=== PATIENT | male | born 1930 | race Caucasian/White ===

== ENCOUNTER 2016-06-03 17:27 | Inpatient (IN) | payer MEDICARE, OTHER ==
[2016-06-03] MEDS ORDERED: Sodium Chloride 0.9% 1,000 ML IV STA (17:40)
[2016-06-03] MEDS ORDERED: Sodium Chloride 0.9% 10 ML Syringe FLUSH PRN (17:40)
[2016-06-03] MEDS ORDERED: Albuterol 0.083% 2.5 MG/3 ML Neb Soln NEB ONE (17:41)
[2016-06-03] MEDS ORDERED: 50% Dextrose in Water 50 ML Syringe IVPUSH ONE (17:41)
[2016-06-03] MEDS ORDERED: Insulin Regular, Human 100 Units/ML 3 ML Vial SUBCUT ONE (17:42)
[2016-06-03] MEDS ORDERED: Sodium Polystyrene Sulfonate 15 GM/60 ML Susp 60 ML Bot PO ONE (17:43)
[2016-06-03] MEDS ORDERED: Calcium Gluconate 10% 1 GM/10 ML SDV IVPUSH ONE (17:43)
--- NOTE | 2016-06-03 19:06 | PCM.HP ---
H&P History of Present Illness - General Date of Service: 06/03/16 Admit Problem/Dx: Acute Kidney Injury and Hyperkalemia Source of Information: Patient, Old records, Provider, RN notes reviewed History Limitations: Reports: Other (Hard of Hearing) - History of Present Illness Initial Comments - Free Text/Narative: This is an 85 yo elderly white female with past medical hx/o Impaired Vision and Hearing, HF with Unknown, HTN, GERD, Hx/o Hemorrhoids, BPH, Chronic Back Pain, Hx/o Seizure and Rosacea who comes with c/o progressive generalized weakness. Patient is mostly bed bound. He uses a walker to get around but lately he has been requiring more help then usual. Patient lives with his . Per EMR, he has been fallen july times as evidenced by multiple bruises and skin breaks he got. He went in to see his PCP today to be evaluated for wheel chair but he was found to have abnormal labs. His Cr was 4.2 with a K 7. From there, he was brought over to ED for further medical treatment. In ED, he received one time dose of albuterol nebs, insulin with D50, 15 gram kayexalate and calcium gluconate before he was sent to the floor for further management. He was referred to me for Acute Kidney Injury, Hyperkalemia and Generalized Weakness. He is DNR/DNI. - Related Data Allergies/Adverse Reactions: Allergies Allergy/AdvReac Type Severity Reaction Status Date / Time acetaminophen Allergy Cannot Verified 06/14/15 18:51 Remember azithromycin [From Zithromax] Allergy Rash Verified 06/14/15 18:51 chocolate flavor Allergy Cannot Verified 06/14/15 18:51 Remember Dairy Products Allergy Cannot Verified 06/14/15 18:51 Remember hydrocodone Allergy Cannot Verified 06/14/15 18:51 Remember phenytoin sodium Allergy Rash Verified 06/14/15 18:51 [From Dilantin] phenytoin sodium extended Allergy Rash Verified 06/14/15 18:51 [From Dilantin] pravastatin Allergy Cannot Verified 06/14/15 18:51 Remember prednisone Allergy Cannot Verified 06/14/15 18:51 Remember tramadol Allergy Cannot Verified 06/14/15 18:51 Remember wheat Allergy Cannot Verified 07/12/14 15:17 Remember soy Allergy Cannot Uncoded 07/12/14 15:17 Remember Home Medications: Home Meds Metoprolol Succinate [Toprol XL] 50 mg PO DAILY 07/12/14 [History] levETIRAcetam [Levetiracetam ER] 500 mg PO BID 07/12/14 [History] Sprinolactone 25 mg PO DAILY 08/30/15 [History] Furosemide 40 mg PO BID 06/03/16 [History] Past Medical History HEENT History: Reports: Impaired vision, Other (see below) Other HEENT History: [place]HE[place] Cardiovascular History: Reports: Heart Failure, Hypertension Gastrointestinal History: Reports: GERD, Hemorrhoids Genitourinary History: Reports: Prostate disorder Musculoskeletal History: Reports: Back pain, chronic Neurological History: Reports: Seizure Psychiatric History: Reports: None Oncologic (Cancer) History: Reports: Prostate Dermatologic History: Reports: Other (see below) Other Dermatologic History: rosacea - Past Surgical History HEENT Surgical History: Reports: Cataract surgery Musculoskeletal Surgical History: Reports: Knee replacement Other Musculoskeletal Surgeries/Procedures:: RIGHT KNEE Social & Family History - Family History Family Medical History: Noncontributory - Tobacco Use Smoking Status *Q: Former Smoker Used Tobacco, but Quit: Yes Month Tobacco Last Used: 1989 - Caffeine Use Caffeine Use: Reports: Coffee - Alcohol Use Days Per Week of Alcohol Use: 0 - Recreational Drug Use Recreational Drug Use: No Recreational Drug Use Frequency: Rarely H&P Review of Systems - Review of Systems: Review Of Systems: See Below General: Reports: malaise, weakness. Denies: fever, chills HEENT: Reports: no symptoms Pulmonary: Denies: shortness of breath Cardiovascular: Denies: chest pain, palpitations, dyspnea on exertion Gastrointestinal: Denies: Abdominal pain, Nausea, Vomiting Genitourinary: Reports: no symptoms Musculoskeletal: Reports: no symptoms Skin: Reports: bruising. Denies: cyanosis, rash Psychiatric: Denies: depression, anxiety, hallucinations Neurological: Reports: weakness. Denies: confusion Hematologic/Lymphatic: Reports: easy bruising Immunologic: Reports: no symptoms Exam - Exam Exam: See Below - Vital Signs Vital Signs: Last Vital Signs Temp 36.2 C 06/03/16 17:37 Pulse 64 06/03/16 17:37 Resp 13 06/03/16 17:37 BP 137/58 L 06/03/16 17:37 Pulse Ox 100 06/03/16 17:37 Weight: 81.647 kg - Exam General: alert. No: mild distress HEENT: Conjunctiva clear, Nares patent, Normal nasal septum, Posterior pharynx clear, PERRLA. No: Hearing intact Neck: supple, trachea midline, 2+ carotid pulse wo bruit Lungs: Normal respiratory effort, Decreased breath sounds Cardiovascular: regular rate, regular rhythm Abdomen: normal bowel sounds, soft. No: organomegaly (Male) Exam: Deferred Rectal (Males) Exam: Deferred Back Exam: normal inspection, decreased range of motion Extremities: normal inspection, edema (trace). No: clubbing, cyanosis, calf tenderness Skin: warm, dry, intact, ecchymosis, wound Skin Alteration Location (drawings not to scale): 1 - ecchymosis 2 - superficial wound 3 - a dark scab on thompson Neuro Extensive - Mental Status: No: oriented x3, normal cognition, memory intact Neuro Extensive - Motor, Sensory, Reflexes: CN II-XII intact (very limited ), abnormal gait, other (able to lift both legs) Psychiatric: alert, normal affect, normal mood Physical Exam Comments:: Physical exam is limited by his hard of hearing and by him unable to follow instructions - Patient Data Result Diagrams: 06/03/16 23:25 EKG INTERPRETATION EKG Date: 06/03/16 Time: 18:30 Rhythm: other (Sinus Rhythm) EKG Interpretation Comments: 1st Degree AVB and Multiple PVCs *Q Meaningful Use (ADM) - VTE *Q VTE Criteria *Q: - Stroke *Q Stroke Criteria *Q: - AMI *Q AMI Criteria *Q: Problem List Initiated/Reviewed/Updated: Yes Orders Last 24hrs: Active Orders 24 hr Category Date Time Status EKG 12 Lead [EKG Documentation Completion] [RC] STAT Care 06/03/16 17:43 Active Peripheral IV Care [RC] . DIRECTED Care 06/03/16 17:41 Active RT Aerosol Therapy [RC] ASDIRECTED Care 06/03/16 17:41 Active Sodium Chloride 0.9% [Saline Flush] Med 06/03/16 17:40 Active 10 ml FLUSH ASDIRECTED PRN Peripheral IV Insertion Adult [OM.PC] Stat Oth 06/03/16 17:40 Ordered Medication Orders Sodium Chloride (Saline Flush) 10 ml FLUSH ASDIRECTED PRN PRN Reason: Keep Vein Open Last Admin: 06/03/16 18:24 Dose: 10 ml Assessment/Plan Comment:: Assessment/Plan: Acute: Acute on Chronic Kidney Disease - Risk Factors: Prostate Disorder and on Diuretics - Cr 4.2, baseline is 2 (obtained form secondary sources) - IV Hydration at 125 - Renal U/S - Will d/c lasix and spironolactone - Will try to void nephrotoxic agents Hyperkalemia - K 7 at the clinic - 2/ JOANNE worsened by K-sparing Diuretic - D/c Spironolactone - Received albuterol, insulin with D50, calcium gluconate and 15 gram kayexalate x1 in ED - Repeat BMP this evening, may continue same regimen above if level dose not improve significantly Generalized Weakness - Has been progressive - Check for thyroid and Vit D level - PT/OT consult - Consider SNF/Rehab placement Anemia: Acute Vs Chronic (likely chronic from CKD) - Hgb is 9.9, no baseline comparison - No active bleed - Will monitor - Consider Iron infusion Chronic: Impaired Vision and Hearing HTN GERD HF with unknown EF Prostate Disorder Back Pain Peripheral Edema Seizure Rosacea Plan; Admit to Med-Surg with Tele Routine AM Labs Resume Some Home Meds PT/OT consult LICENSE INSPECTOR for cognitive eval SW/CM for d/c planning Seizure/Fall Precautions DVT ppx: SCDs Code status: DNR/DNI Additional orders as above
--- NOTE | 2016-06-03 20:47 | EDM.PDOC ---
ED HPI NEURO - General Chief Complaint: General Stated Complaint: [facility] Time Seen by Provider: 06/03/16 17:33 Source of Information: Reports: Patient, Family, Provider History Limitations: Reports: No limitations - History of Present Illness INITIAL COMMENTS - FREE TEXT/NARRATIVE: The patient was sent to the ER for abnormal labs. He has been having trouble getting around at home. He uses a walker and he has been needing more help getting around at home. He has fallen a many times. He went to [facility] today to be evaluated for a wheel chair. She did some labs and she called the patient back. His creatinine was high at 4.2 and his K was high at 7. EMS brought him in. He had no complaints when he arrive. He had no chest pain, fever, chills, cough, congestion, shortness of breath, abdominal pain, nausea or vomiting. Timing/Duration: Reports: Week(s): Location (Neuro Complaint): Reports: lower extremity, left, lower extremity, right Quality (Neuro Complaint): Reports: weakness Severity: moderate Improves with: Reports: None Worsens with: Reports: None Associated Symptoms: Reports: no other symptoms - Related Data Allergies/ADRs: Allergies Allergy/AdvReac Type Severity Reaction Status Date / Time acetaminophen Allergy Cannot Verified 06/14/15 18:51 Remember azithromycin [From Zithromax] Allergy Rash Verified 06/14/15 18:51 chocolate flavor Allergy Cannot Verified 06/14/15 18:51 Remember Dairy Products Allergy Cannot Verified 06/14/15 18:51 Remember hydrocodone Allergy Cannot Verified 06/14/15 18:51 Remember phenytoin sodium Allergy Rash Verified 06/14/15 18:51 [From Dilantin] phenytoin sodium extended Allergy Rash Verified 06/14/15 18:51 [From Dilantin] pravastatin Allergy Cannot Verified 06/14/15 18:51 Remember prednisone Allergy Cannot Verified 06/14/15 18:51 Remember tramadol Allergy Cannot Verified 06/14/15 18:51 Remember wheat Allergy Cannot Verified 07/12/14 15:17 Remember soy Allergy Cannot Uncoded 07/12/14 15:17 Remember Home Meds: Home Meds Metoprolol Succinate [Toprol XL] 50 mg PO DAILY 07/12/14 [History] levETIRAcetam [Levetiracetam ER] 500 mg PO BID 07/12/14 [History] Sprinolactone 25 mg PO DAILY 08/30/15 [History] Furosemide 40 mg PO BID 06/03/16 [History] Past Medical History HEENT History: Reports: Impaired vision, Other (see below) Other HEENT History: [place] Cardiovascular History: Reports: Heart Failure, Hypertension Gastrointestinal History: Reports: GERD, Hemorrhoids Genitourinary History: Reports: Prostate disorder Musculoskeletal History: Reports: Back pain, chronic Neurological History: Reports: Seizure Psychiatric History: Reports: None Oncologic (Cancer) History: Reports: Prostate Dermatologic History: Reports: Other (see below) Other Dermatologic History: rosacea - Past Surgical History HEENT Surgical History: Reports: Cataract surgery Musculoskeletal Surgical History: Reports: Knee replacement Other Musculoskeletal Surgeries/Procedures:: RIGHT KNEE Social & Family History - Family History Family Medical History: Noncontributory - Tobacco Use Smoking Status *Q: Former Smoker Used Tobacco, but Quit: Yes Month Tobacco Last Used: 1989 - Caffeine Use Caffeine Use: Reports: Coffee - Alcohol Use Days Per Week of Alcohol Use: 0 - Recreational Drug Use Recreational Drug Use: No Recreational Drug Use Frequency: Rarely ED ROS GENERAL - Review of Systems Review Of Systems: See Below Constitutional: Reports: weakness HEENT: Reports: No symptoms Respiratory: Reports: no symptoms Cardiovascular: Reports: No symptoms Endocrine: Reports: no symptoms GI/Abdominal: Reports: No symptoms : Reports: no symptoms Musculoskeletal: Reports: no symptoms Skin: Reports: no symptoms Neurological: Reports: weakness (Generalized) ED EXAM, NEURO - Physical Exam Exam: See Below Exam Limited By: No limitations General Appearance: alert, no apparent distress Ears: normal external exam Nose: normal inspection Head Exam: atraumatic, normocephalic Neck: normal inspection Respiratory/Chest: no respiratory distress, lungs clear, normal breath sounds Cardiovascular: regular rate, rhythm, no murmur GI/Abdominal: soft, non tender, no organomegaly Neurological: alert, no motor/sensory deficits, oriented x 3 Back Exam: normal inspection Extremities: other (lower leg edema) EKG INTERPRETATION EKG Date: 06/03/16 Time: 18:30 Rhythm: NSR Rate (beats/min): 61 [place]: normal P-wave: present QRS: normal ST-T: normal QT: normal [place]/PQ Interval: 1st degree HB EKG Interpretation Comments: Multiple PVCs. Course - Vital Signs Last Recorded V/S: Last Vital Signs Temp 97.1 F 06/03/16 17:37 Pulse 64 06/03/16 17:37 Resp 13 06/03/16 17:37 BP 137/58 L 06/03/16 17:37 Pulse Ox 100 06/03/16 17:37 - Orders/Labs/Meds Orders: Active Orders 24 hr Category Date Time Status EKG 12 Lead [EKG Documentation Completion] [RC] STAT Care 06/03/16 17:43 Active Peripheral IV Care [RC] . DIRECTED Care 06/03/16 17:41 Active RT Aerosol Therapy [RC] ASDIRECTED Care 06/03/16 17:41 Active Sodium Chloride 0.9% [Saline Flush] Med 06/03/16 17:40 Active 10 ml FLUSH ASDIRECTED PRN Peripheral IV Insertion Adult [OM.PC] Stat Oth 06/03/16 17:40 Ordered Medication Orders Sodium Chloride (Saline Flush) 10 ml FLUSH ASDIRECTED PRN PRN Reason: Keep Vein Open Last Admin: 06/03/16 18:24 Dose: 10 ml Meds: Medications Generic Name Dose Route Start Last Admin Trade Name Freq PRN Reason Stop Dose Admin Sodium Chloride 10 ml 06/03/16 17:40 06/03/16 18:24 Saline Flush FLUSH 10 ml ASDIRECTED PRN Administration Keep Vein Open Discontinued Medications Generic Name Dose Route Start Last Admin Trade Name Freq PRN Reason Stop Dose Admin Albuterol 2.5 mg 06/03/16 17:41 06/03/16 18:32 Proventil Neb Soln NEB 06/03/16 17:42 2.5 mg ONETIME ONE Administration Calcium Gluconate 1 gm 06/03/16 17:43 06/03/16 18:23 Calcium Gluconate IVPUSH 06/03/16 17:44 1 gm ONETIME ONE Administration Dextrose/Water 50 ml 06/03/16 17:41 06/03/16 18:07 Dextrose 50% In Water IVPUSH 06/03/16 17:42 50 ml ONETIME ONE Administration Sodium Chloride 1,000 mls @ 1,000 mls/hr 06/03/16 17:40 06/03/16 18:10 Normal Saline IV 06/03/16 18:39 1,000 mls/hr .BOLUS STA Administration Insulin Human Regular 10 unit 06/03/16 17:42 06/03/16 18:11 Humulin R SUBCUT 06/03/16 17:43 10 units ONETIME ONE Administration Protocol Sodium Polystyrene Sulfonate 15 gm 06/03/16 17:43 06/03/16 18:41 Kayexalate PO 06/03/16 17:44 15 gm ONETIME ONE Administration - Re-Assessments/Exams Free Text/Narrative Re-Assessment/Exam: 06/03/16 20:50 I ordered an IV and some fluids. His EKG shows nothing acute. His is in acute renal failure and hyperkalemia. I ordered an albuterol treatment, insulin with D50, kayexylate 15 grams and calcium gluconate. I called Dr Toledo and he agreed to the admission. Departure - Departure Time of Disposition: 20:50 Disposition: Admitted As Inpatient 65 Condition: poor Clinical Impression: Generalized weakness, Hyperkalemia Acute renal failure Qualifiers: Acute renal failure type: unspecified Qualified Code(s): N17.9 - Acute kidney failure, unspecified Anemia Qualifiers: Anemia type: unspecified type Qualified Code(s): D64.9 - Anemia, unspecified - My Orders Last 24 Hours: My Active Orders 06/03/16 17:40 Sodium Chloride 0.9% [Saline Flush] 10 ml FLUSH ASDIRECTED PRN Peripheral IV Insertion Adult [OM.PC] Stat 06/03/16 17:41 Peripheral IV Care [RC] . DIRECTED RT Aerosol Therapy [RC] ASDIRECTED 06/03/16 17:43 EKG 12 Lead [EKG Documentation Completion] [RC] STAT - Assessment/Plan Last 24 Hours: My Active Orders 06/03/16 17:40 Sodium Chloride 0.9% [Saline Flush] 10 ml FLUSH ASDIRECTED PRN Peripheral IV Insertion Adult [OM.PC] Stat 06/03/16 17:41 Peripheral IV Care [RC] . DIRECTED RT Aerosol Therapy [RC] ASDIRECTED 06/03/16 17:43 EKG 12 Lead [EKG Documentation Completion] [RC] STAT
[2016-06-03] MEDS ORDERED: Metoprolol Tartrate 5 MG/5 ML SDV IVPUSH PRN (23:35)
[2016-06-03] MEDS ORDERED: hydrALAZINE 20 MG/ML SDV IVPUSH PRN (23:35)
[2016-06-03] MEDS ORDERED: Polyethylene Glycol 3350 Powder 17 GM Packet PO PRN (23:36)
[2016-06-03] MEDS ORDERED: Temazepam 15 MG Cap PO PRN (23:36)
[2016-06-03] MEDS ORDERED: Albuterol/Ipratropium 3.0-0.5 MG/3 ML Neb Soln NEB PRN (23:36)
[2016-06-03] MEDS ORDERED: Promethazine 12.5 MG in Sodium Chloride 0.9% 50 ML IV PRN (23:36)
[2016-06-03] MEDS ORDERED: Acetaminophen/HYDROcodone 325-5 MG Tab PO PRN (23:36)
[2016-06-03] MEDS ORDERED: HYDROmorphone 0.5 MG/0.5 ML Syringe IVPUSH PRN (23:36)
[2016-06-03] MEDS ORDERED: Acetaminophen 325 MG Tab PO PRN (23:36)
[2016-06-03] MEDS ORDERED: Ondansetron 4 MG/2 ML SDV IV PRN (23:36)
[2016-06-03] MEDS ORDERED: Bisacodyl 5 MG Tab PO PRN (23:36)
[2016-06-03] MEDS ORDERED: LORazepam 2 MG/ML MDV IV PRN (23:36)
[2016-06-04] MEDS ORDERED: Calcium Gluconate 10% 1 GM/10 ML SDV IVPUSH ONE (00:04)
[2016-06-04] MEDS: Sodium Polystyrene Sulfonate 15 GM/60 ML Susp 60 ML Bot PO SCH ×2 (01:37→10:08)
[2016-06-04] MEDS: Sodium Chloride 0.9% 1,000 ML IV SCH ×2 (01:37→14:49)
[2016-06-04] MEDS ORDERED: Spironolactone 25 MG Tab PO SCH (09:00)
--- NOTE | 2016-06-04 09:34 | PCM.PN ---
- General Info Date of Service: 06/04/16 Admission Dx/Problem (Free Text): Acute Kidney Injury and Hyperkalemia Subjective Update: Follow Up Functional Status: Reports: pain controlled, tolerating diet, urinating. Denies : new symptoms - Review of Systems General: Denies: fever, chills HEENT: Reports: no symptoms Pulmonary: Denies: shortness of breath Cardiovascular: Denies: chest pain Gastrointestinal: Denies: Abdominal pain, Nausea, Vomiting Genitourinary: Reports: no symptoms Musculoskeletal: Reports: no symptoms Skin: Denies: cyanosis, pruritis, rash Neurological: Reports: difficulty walking, weakness, gait disturbance. Denies: confusion, dizziness Psychiatric: Denies: depression, anxiety, hallucinations Systems Review Comment:: No overnight or acute issues. He has no new complaints. His K is now at 5.7 from 6.1, Cr is now at 3.9, and Hgb is 8.8. He wants to go home. - Patient Data Vitals - most recent: Last Vital Signs Temp 36.3 C 06/04/16 07:53 Pulse 63 06/04/16 07:53 Resp 16 06/04/16 07:53 BP 113/46 L 06/04/16 07:53 Pulse Ox 98 06/04/16 07:53 Weight - most recent: 68.538 kg I&O - last 24 hours: Intake & Output 06/03/16 06/04/16 06/04/16 22:59 06:59 14:59 Intake Total 1217 Output Total 200 Balance 1017 Lab Results last 24 hrs: Laboratory Results - last 24 hr 06/03/16 06/04/16 06/04/16 Range/Units 23:25 04:38 05:40 WBC 4.98 (4.23-9.07) K/mm3 RBC 2.86 L (4.63-6.08) M/mm3 Hgb 8.8 L (13.7-17.5) gm/L Hct 26.9 L (40.1-51.0) % MCV 94.1 H (79.0-92.2) fl MCH 30.8 (25.7-32.2) pg MCHC 32.7 (32.2-35.5) g/dl RDW Std Deviation 43.7 (35.1-43.9) fL Plt Count 218 (163-337) K/mm3 MPV 10.9 (9.4-12.3) fl Neut % (Auto) 62.7 (34.0-67.9) % Lymph % (Auto) 20.1 L (21.8-53.1) % [place] % (Auto) 11.6 (5.3-12.2) % Eos % (Auto) 5.0 (0.8-7.0) Baso % (Auto) 0.6 (0.1-1.2) % Neut # 3.12 (1.78-5.38) K/mm3 Lymph # 1.00 L (1.32-3.57) K/mm3 [place] # 0.58 (0.30-0.82) K/mm3 Eos # 0.25 (0.04-0.54) K/mm3 Baso # 0.03 (0.01-0.08) K/mm3 Sodium 136 (136-145) mEq/L Potassium 6.1 H (3.5-5.1) mEq/L Chloride 107 (98-107) mEq/L Carbon Dioxide 18 L (21-32) mEq/L Anion Gap 17.1 H (5-15) BUN 72 H (7-18) mg/dL Creatinine 3.9 H (0.7-1.3) mg/dL Est Cr Clr Drug Dosing 13.60 mL/min Estimated GFR (MDRD) 15 (>60) mL/min BUN/Creatinine Ratio 18.5 H (14-18) Glucose 89 (83-115) mg/dL Calcium 8.4 L (8.5-10.1) mg/dL Magnesium (1.8-2.4) mg/dl Free T4 (0.76-1.46) ng/dL TSH 3rd Generation (0.358-3.74) uIU/mL Urine Color Light yellow (Yellow) Urine Appearance Slt cloudy H (Clear) Urine pH 5.5 (5.0-8.0) Ur Specific [place] 1.015 (1.005-1.030) Urine Protein Trace H (Negative) Urine Glucose (UA) Negative (Negative) Urine Ketones Negative (Negative) Urine Occult Blood Trace-lysed H (Negative) Urine Nitrite Negative (Negative) Urine Bilirubin Negative (Negative) Urine Urobilinogen 0.2 (0.2-1.0) Ur Leukocyte Esterase Negative (Negative) Urine RBC 0-5 (0-5) /hpf Urine WBC 0-5 (0-5) /hpf Ur Squamous Epith Cells 0-5 (0-5) /hpf Urine Bacteria Rare (FEW) /hpf Hyaline Casts 0-5 (0-5) /lpf Urine Mucus Not seen (FEW) /hpf 06/04/16 Range/Units 05:40 WBC (4.23-9.07) K/mm3 RBC (4.63-6.08) M/mm3 Hgb (13.7-17.5) gm/L Hct (40.1-51.0) % MCV (79.0-92.2) fl MCH (25.7-32.2) pg MCHC (32.2-35.5) g/dl RDW Std Deviation (35.1-43.9) fL Plt Count (163-337) K/mm3 MPV (9.4-12.3) fl Neut % (Auto) (34.0-67.9) % Lymph % (Auto) (21.8-53.1) % [place] % (Auto) (5.3-12.2) % Eos % (Auto) (0.8-7.0) Baso % (Auto) (0.1-1.2) % Neut # (1.78-5.38) K/mm3 Lymph # (1.32-3.57) K/mm3 [place] # (0.30-0.82) K/mm3 Eos # (0.04-0.54) K/mm3 Baso # (0.01-0.08) K/mm3 Sodium 137 (136-145) mEq/L Potassium 5.7 H (3.5-5.1) mEq/L Chloride 106 (98-107) mEq/L Carbon Dioxide 20 L (21-32) mEq/L Anion Gap 16.7 H (5-15) BUN 66 H (7-18) mg/dL Creatinine 3.9 H (0.7-1.3) mg/dL Est Cr Clr Drug Dosing 13.18 mL/min Estimated GFR (MDRD) 15 (>60) mL/min BUN/Creatinine Ratio 16.9 (14-18) Glucose 112 (83-115) mg/dL Calcium 8.6 (8.5-10.1) mg/dL Magnesium 2.4 (1.8-2.4) mg/dl Free T4 0.96 (0.76-1.46) ng/dL TSH 3rd Generation 0.930 (0.358-3.74) uIU/mL Urine Color (Yellow) Urine Appearance (Clear) Urine pH (5.0-8.0) Ur Specific [place] (1.005-1.030) Urine Protein (Negative) Urine Glucose (UA) (Negative) Urine Ketones (Negative) Urine Occult Blood (Negative) Urine Nitrite (Negative) Urine Bilirubin (Negative) Urine Urobilinogen (0.2-1.0) Ur Leukocyte Esterase (Negative) Urine RBC (0-5) /hpf Urine WBC (0-5) /hpf Ur Squamous Epith Cells (0-5) /hpf Urine Bacteria (FEW) /hpf Hyaline Casts (0-5) /lpf Urine Mucus (FEW) /hpf Med Orders - Current: Current Medications Acetaminophen (Tylenol) 650 mg PO Q4H PRN PRN Reason: Pain (Mild 1-3)/fever Acetaminophen/Hydrocodone Bitart ([place] 325-5 Mg) 1 tab PO Q4H PRN PRN Reason: Pain (moderate 4-6) Albuterol/Ipratropium (Duoneb 3.0-0.5 Mg/3 Ml) 3 ml NEB Q4H PRN PRN Reason: Shortness Of Breath/wheezing Bisacodyl (Dulcolax) 5 mg PO DAILY PRN PRN Reason: Constipation Hydralazine HCl (Apresoline) 10 mg IVPUSH Q4H PRN PRN Reason: Hypertension Hydromorphone HCl (Dilaudid) 0.25 mg IVPUSH Q2H PRN PRN Reason: Pain (severe 7-10) Promethazine HCl 12.5 mg/ (Sodium Chloride) 50.5 mls @ 100 mls/hr IV Q6H PRN PRN Reason: Nausea/Vomiting Sodium Chloride (Normal Saline) 1,000 mls @ 125 mls/hr IV ASDIRECTED [facility] Last Admin: 06/04/16 01:37 Dose: 125 mls/hr Levetiracetam (Keppra) 500 mg PO BID [facility] Lorazepam (Ativan) 0.25 mg IV Q6H PRN PRN Reason: Anxiety Magnesium Sulfate (Pharmacy To Dose - Magnesium Replacement) 1 dose .XX ASDIRECTED [facility] Metoprolol Succinate (Toprol Xl) 50 mg PO DAILY [facility] Metoprolol Tartrate (Lopressor) 5 mg IVPUSH Q4H PRN PRN Reason: Tachycardia Ondansetron HCl (Zofran) 4 mg IV Q6H PRN PRN Reason: Nausea/Vomiting Polyethylene Glycol (Miralax) 17 gm PO DAILY PRN PRN Reason: Constipation Potassium Chloride (Pharmacy To Dose - Potassium Replacement) 1 dose .XX ASDIRECTED [facility] Senna/Docusate Sodium (Senna Plus) 1 tab PO BID PRN PRN Reason: Constipation Sodium Chloride (Saline Flush) 10 ml FLUSH ASDIRECTED PRN PRN Reason: Keep Vein Open Last Admin: 06/03/16 18:24 Dose: 10 ml Sodium Polystyrene Sulfonate (Kayexalate) 15 gm PO Q8H [facility] Last Admin: 06/04/16 01:37 Dose: 15 gm Temazepam (Restoril) 15 mg PO BEDTIME PRN PRN Reason: Sleep Discontinued Medications Albuterol (Proventil Neb Soln) 2.5 mg NEB ONETIME ONE Stop: 06/03/16 17:42 Last Admin: 06/03/16 18:32 Dose: 2.5 mg Calcium Gluconate (Calcium Gluconate) 1 gm IVPUSH ONETIME ONE Stop: 06/03/16 17:44 Last Admin: 06/03/16 18:23 Dose: 1 gm Calcium Gluconate (Calcium Gluconate) 1 gm IVPUSH ONETIME ONE Stop: 06/04/16 00:05 Last Admin: 06/04/16 01:37 Dose: 1 gm Dextrose/Water (Dextrose 50% In Water) 50 ml IVPUSH ONETIME ONE Stop: 06/03/16 17:42 Last Admin: 06/03/16 18:07 Dose: 50 ml Sodium Chloride (Normal Saline) 1,000 mls @ 1,000 mls/hr IV .BOLUS STA Stop: 06/03/16 18:39 Last Admin: 06/03/16 18:10 Dose: 1,000 mls/hr Insulin Human Regular (Humulin R) 10 unit SUBCUT ONETIME ONE PRN Reason: Protocol Stop: 06/03/16 17:43 Last Admin: 06/03/16 18:11 Dose: 10 units Sodium Polystyrene Sulfonate (Kayexalate) 15 gm PO ONETIME ONE Stop: 06/03/16 17:44 Last Admin: 06/03/16 18:41 Dose: 15 gm Spironolactone (Aldactone) 25 mg PO DAILY PEDRO - Exam General: alert, cooperative, no acute distress HEENT: Pupils equal, Pupils reactive Neck: supple, trachea midline, no JVD, no thyromegaly Lungs: Normal respiratory effort, Decreased breath sounds Cardiovascular: regular rate, regular rhythm Abdomen: bowel sounds present, soft, no tenderness, no distension (Male) Exam: Deferred Back Exam: normal inspection, decreased range of motion Extremities: normal pulses, no tenderness/swelling, no clubbing, no cyanosis, no calf tenderness, edema Peripheral Pulses: 2+: dorsalis pedis (L), dorsalis pedis (R) Skin: warm, dry, intact Neurological: no new focal deficit Psy/Mental Status: alert, normal affect, normal mood - Problem List Review Problem List Initiated/Reviewed/Updated: Yes - My Orders Last 24 Hours: My Active Orders 06/03/16 23:35 Metoprolol Tartrate [Lopressor] 5 mg IVPUSH Q4H PRN hydrALAZINE [Apresoline] 10 mg IVPUSH Q4H PRN 06/03/16 23:36 Ambulate [RC] ASDIRECTED Height and Weight [RC] DAILY Oxygen Therapy [RC] PRN Up ad [place]i [RC] ASDIRECTED VTE/DVT Education [RC] PER UNIT ROUTINE Vital Signs [RC] Q4H Acetaminophen [Tylenol] 650 mg PO Q4H PRN Acetaminophen/HYDROcodone [[place] 325-5 MG] 1 tab PO Q4H PRN Albuterol/Ipratropium [DuoNeb 3.0-0.5 MG/3 ML] 3 ml NEB Q4H PRN Bisacodyl [Dulcolax] 5 mg PO DAILY PRN Docusate Sodium/Sennosides [Senna Plus] 1 tab PO BID PRN HYDROmorphone [Dilaudid] 0.25 mg IVPUSH Q2H PRN LORazepam [Ativan] 0.25 mg IV Q6H PRN Ondansetron [Zofran] 4 mg IV Q6H PRN Polyethylene Glycol 3350 [MiraLAX] 17 gm PO DAILY PRN Promethazine [Phenergan] 12.5 mg Sodium Chloride 0.9% [Normal Saline] 50 ml IV Q6H Temazepam [Restoril] 15 mg PO BEDTIME PRN Resuscitation Status Routine 06/03/16 23:37 Cardiac Monitoring [RC] CONTINUOUS Intake and Output [RC] QSHIFT Sequential Compression Device [OM.PC] Per Unit Routine 06/03/16 23:38 Antiembolic Devices [RC] PER UNIT ROUTINE 06/03/16 23:39 RT Aerosol Therapy [RC] ASDIRECTED Consult to Case Management [CONS] Routine Consult to Agricultural Technician [CONS] Routine Consult to Spiritual Care [CONS] Routine OT Evaluation and Treatment [CONS] Routine PT Evaluation and Treatment [CONS] Routine 06/03/16 23:45 Magnesium Rep Pharmacy to Dose [Pharmacy to Dose - Magnesium Replacement] 1 dose .XX ASDIRECTED Potassium Rep Pharmacy to Dose [Pharmacy to Dose - Potassium Replacement] 1 dose .XX ASDIRECTED Sodium Chloride 0.9% [Normal Saline] 1,000 ml IV ASDIRECTED 06/03/16 23:58 Precautions [COMM] Routine 06/03/16 Dinner 2 Gram Sodium Diet [DIET] 06/04/16 00:15 Sodium Polystyrene Sulfonate [Kayexalate] 15 gm PO Q8H 06/04/16 04:38 CULTURE URINE [RM] Stat 06/04/16 05:40 VIT D, 25 HYDROXY [REF] Urgent 06/04/16 07:00 Retroperitoneal Comp [US] Routine 06/04/16 09:00 Metoprolol Succinate [Toprol XL] 50 mg PO DAILY levETIRAcetam [Keppra] 500 mg PO BID 06/05/16 05:11 BASIC METABOLIC PANEL,BMP [CHEM] AM CBC WITH AUTO DIFF [HEME] AM MAGNESIUM [CHEM] AM 06/06/16 05:11 BASIC METABOLIC PANEL,BMP [CHEM] AM CBC WITH AUTO DIFF [HEME] AM MAGNESIUM [CHEM] AM 06/07/16 05:11 BASIC METABOLIC PANEL,BMP [CHEM] AM CBC WITH AUTO DIFF [HEME] AM MAGNESIUM [CHEM] AM 06/08/16 05:11 BASIC METABOLIC PANEL,BMP [CHEM] AM CBC WITH AUTO DIFF [HEME] AM MAGNESIUM [CHEM] AM 06/09/16 05:11 BASIC METABOLIC PANEL,BMP [CHEM] AM CBC WITH AUTO DIFF [HEME] AM MAGNESIUM [CHEM] AM - Plan Plan:: Assessment/Plan: Acute: Acute on Chronic Kidney Disease, Improving - Risk Factors: Prostate Disorder and on Diuretics - Cr 4.2, baseline is 2 (obtained form secondary sources), ---> 3.9 - Continue IV Hydration - Renal U/S: small cyst on left kidney, 10.4 cm cystic structure bet left kidney and spleen (felt to be benign) - Will d/c lasix and spironolactone - Will try to void nephrotoxic agents Hyperkalemia, Improving - K 7 at the clinic--> 5.7 - 2/2 JOANNE worsened by K-sparing Diuretic - D/c Spironolactone - Received albuterol, insulin with D50, calcium gluconate and 15 gram kayexalate x1 in ED - Repeat BMP this evening, may continue same regimen above if level dose not improve significantly Generalized Weakness - Has been progressive - Normal thyroid panel - Vit D level pending - Continue PT/OT - Consider SNF/Rehab placement, family and patient refused: he will go home with HHS: Nursing/PT/OT/HS Eval Anemia: Acute Vs Chronic (likely chronic from CKD) - Hgb is 9.9, no baseline comparison ---> 8.8 ( likely hemodilution) - No active bleed - Will repeat lab Chronic: Impaired Vision and Hearing HTN GERD HF with unknown EF Prostate Disorder Back Pain Peripheral Edema Seizure Rosacea Plan: He is clinically stable Routine AM Labs Continue PT/OT l SW/CM for d/c planning Seizure/Fall Precautions DVT ppx: SCDs Code status: DNR/DNI Additional orders as above Possible d/c in 1-2 days
[2016-06-04] MEDS: levETIRAcetam 500 MG Tab PO SCH ×2 (10:07→20:59)
[2016-06-04] MEDS: Metoprolol Succinate 50 MG Tab.ER PO SCH (10:08)
--- NOTE | 2016-06-04 13:37 | US ---
Renal ultrasound: Multiple real-time images of the kidneys were obtained. Diffusely echogenic renal cortices are seen as well as diffuse cortical thinning. Resistivity indices are normal. No hydronephrosis or mass is seen of either kidney. Small exophytic cyst appears to be present off the left kidney measuring about 1.9 cm. Right kidney measures 9.8 cm in length. Left kidney measures 9.9 cm in length. Bilateral ureteral jets seen within the bladder. Prostate gland is enlarged. Cystic area is seen between the kidney and spleen which measures about 10.4 cm. This appears stable from CT study back to 10/26/10 and is therefore felt to be incidental. Impression: 1. Small cyst off the left kidney. 2. 10.4 cm cystic structure between the left kidney and spleen seen on CT study back to 2010 and is therefore felt to be benign and incidental. 3. Cortices of both kidneys are somewhat small and echogenic presumably due to medical renal disease. No hydronephrosis is noted. Diagnostic code #2
--- NOTE | 2016-06-05 07:39 | PCM.PN ---
- General Info Date of Service: 06/05/16 Admission Dx/Problem (Free Text): Acute Kidney Injury and Hyperkalemia Subjective Update: Follow Up Functional Status: Reports: pain controlled, tolerating diet, urinating. Denies : new symptoms - Review of Systems General: Denies: fever, chills HEENT: Reports: no symptoms Pulmonary: Denies: shortness of breath Cardiovascular: Denies: chest pain, dyspnea on exertion, edema Gastrointestinal: Denies: Abdominal pain, Nausea, Vomiting Genitourinary: Reports: no symptoms Musculoskeletal: Reports: no symptoms Skin: Denies: cyanosis, pruritis, rash Neurological: Denies: dizziness, difficulty walking, weakness Psychiatric: Denies: depression, anxiety, hallucinations Systems Review Comment:: No overnight or acute issues. He is doing relatively well. His Hgb is down to 8.4 from 9. His Cr improve to 3.1 from 3.9. He has no new complaints. - Patient Data Vitals - most recent: Last Vital Signs Temp 36.9 C 06/05/16 03:34 Pulse 93 06/05/16 03:34 Resp 21 H 06/05/16 03:34 BP 134/52 L 06/05/16 03:34 Pulse Ox 100 06/05/16 03:34 Weight - most recent: 69.763 kg I&O - last 24 hours: Intake & Output 06/04/16 06/05/16 06/05/16 22:59 06:59 14:59 Intake Total 2280 1524 Output Total 300 300 Balance 1980 1224 Lab Results last 24 hrs: Laboratory Results - last 24 hr 06/04/16 06/05/16 06/05/16 Range/Units 13:35 04:55 04:55 WBC 5.96 5.53 (4.23-9.07) K/mm3 RBC 3.06 L 2.80 L (4.63-6.08) M/mm3 Hgb 9.2 L 8.4 L (13.7-17.5) gm/L Hct 28.9 L 26.3 L (40.1-51.0) % MCV 94.4 H 93.9 H (79.0-92.2) fl MCH 30.1 30.0 (25.7-32.2) pg MCHC 31.8 L 31.9 L (32.2-35.5) g/dl RDW Std Deviation 44.9 H 43.6 (35.1-43.9) fL Plt Count 229 213 (163-337) K/mm3 MPV 10.2 11.0 (9.4-12.3) fl Neut % (Auto) 62.6 67.2 (34.0-67.9) % Lymph % (Auto) 14.4 L 12.3 L (21.8-53.1) % [place] % (Auto) 13.1 H 10.8 (5.3-12.2) % Eos % (Auto) 9.2 H 9.0 H (0.8-7.0) Baso % (Auto) 0.5 0.5 (0.1-1.2) % Neut # 3.73 3.71 (1.78-5.38) K/mm3 Lymph # 0.86 L 0.68 L (1.32-3.57) K/mm3 [place] # 0.78 0.60 (0.30-0.82) K/mm3 Eos # 0.55 H 0.50 (0.04-0.54) K/mm3 Baso # 0.03 0.03 (0.01-0.08) K/mm3 Manual Slide Review Not Reportable Sodium 139 (136-145) mEq/L Potassium 4.2 (3.5-5.1) mEq/L Chloride 109 H (98-107) mEq/L Carbon Dioxide 18 L (21-32) mEq/L Anion Gap 16.2 H (5-15) BUN 62 H (7-18) mg/dL Creatinine 3.1 H (0.7-1.3) mg/dL Est Cr Clr Drug Dosing 16.58 mL/min Estimated GFR (MDRD) 19 (>60) mL/min BUN/Creatinine Ratio 20.0 H (14-18) Glucose 96 (83-115) mg/dL Calcium 7.9 L (8.5-10.1) mg/dL Magnesium 2.1 (1.8-2.4) mg/dl Med Orders - Current: Current Medications Acetaminophen (Tylenol) 650 mg PO Q4H PRN PRN Reason: Pain (Mild 1-3)/fever Albuterol/Ipratropium (Duoneb 3.0-0.5 Mg/3 Ml) 3 ml NEB Q4H PRN PRN Reason: Shortness Of Breath/wheezing Bisacodyl (Dulcolax) 5 mg PO DAILY PRN PRN Reason: Constipation Hydralazine HCl (Apresoline) 10 mg IVPUSH Q4H PRN PRN Reason: Hypertension Hydromorphone HCl (Dilaudid) 0.25 mg IVPUSH Q2H PRN PRN Reason: Pain (severe 7-10) Promethazine HCl 12.5 mg/ (Sodium Chloride) 50.5 mls @ 100 mls/hr IV Q6H PRN PRN Reason: Nausea/Vomiting Sodium Chloride (Normal Saline) 1,000 mls @ 125 mls/hr IV ASDIRECTED [facility] Last Admin: 06/04/16 14:49 Dose: 125 mls/hr Levetiracetam (Keppra) 500 mg PO BID [facility] Last Admin: 06/04/16 20:59 Dose: 500 mg Lorazepam (Ativan) 0.25 mg IV Q6H PRN PRN Reason: Anxiety Magnesium Sulfate (Pharmacy To Dose - Magnesium Replacement) 1 dose .XX ASDIRECTED [facility] Metoprolol Succinate (Toprol Xl) 50 mg PO DAILY [facility] Last Admin: 06/04/16 10:08 Dose: 50 mg Metoprolol Tartrate (Lopressor) 5 mg IVPUSH Q4H PRN PRN Reason: Tachycardia Ondansetron HCl (Zofran) 4 mg IV Q6H PRN PRN Reason: Nausea/Vomiting Polyethylene Glycol (Miralax) 17 gm PO DAILY PRN PRN Reason: Constipation Potassium Chloride (Pharmacy To Dose - Potassium Replacement) 1 dose .XX ASDIRECTED [facility] Senna/Docusate Sodium (Senna Plus) 1 tab PO BID PRN PRN Reason: Constipation Sodium Chloride (Saline Flush) 10 ml FLUSH ASDIRECTED PRN PRN Reason: Keep Vein Open Last Admin: 06/03/16 18:24 Dose: 10 ml Temazepam (Restoril) 15 mg PO BEDTIME PRN PRN Reason: Sleep Discontinued Medications Acetaminophen/Hydrocodone Bitart ([place] 325-5 Mg) 1 tab PO Q4H PRN PRN Reason: Pain (moderate 4-6) Albuterol (Proventil Neb Soln) 2.5 mg NEB ONETIME ONE Stop: 06/03/16 17:42 Last Admin: 06/03/16 18:32 Dose: 2.5 mg Calcium Gluconate (Calcium Gluconate) 1 gm IVPUSH ONETIME ONE Stop: 06/03/16 17:44 Last Admin: 06/03/16 18:23 Dose: 1 gm Calcium Gluconate (Calcium Gluconate) 1 gm IVPUSH ONETIME ONE Stop: 06/04/16 00:05 Last Admin: 06/04/16 01:37 Dose: 1 gm Dextrose/Water (Dextrose 50% In Water) 50 ml IVPUSH ONETIME ONE Stop: 06/03/16 17:42 Last Admin: 06/03/16 18:07 Dose: 50 ml Sodium Chloride (Normal Saline) 1,000 mls @ 1,000 mls/hr IV .BOLUS STA Stop: 06/03/16 18:39 Last Admin: 06/03/16 18:10 Dose: 1,000 mls/hr Insulin Human Regular (Humulin R) 10 unit SUBCUT ONETIME ONE PRN Reason: Protocol Stop: 06/03/16 17:43 Last Admin: 06/03/16 18:11 Dose: 10 units Sodium Polystyrene Sulfonate (Kayexalate) 15 gm PO ONETIME ONE Stop: 06/03/16 17:44 Last Admin: 06/03/16 18:41 Dose: 15 gm Sodium Polystyrene Sulfonate (Kayexalate) 15 gm PO Q8H [facility] Last Admin: 06/04/16 10:08 Dose: 15 gm Spironolactone (Aldactone) 25 mg PO DAILY PEDRO - Exam Quality Assessment: No: supplemental oxygen General: alert, cooperative, no acute distress HEENT: Pupils equal, Pupils reactive, Mucous membr. moist/pink Neck: supple, trachea midline, no JVD Lungs: Normal respiratory effort, Decreased breath sounds Cardiovascular: regular rate, regular rhythm Abdomen: bowel sounds present, soft, no tenderness, no distension (Male) Exam: Deferred Back Exam: normal inspection, decreased range of motion Extremities: no edema, normal pulses, no tenderness/swelling, no clubbing, no cyanosis, no calf tenderness Peripheral Pulses: 2+: dorsalis pedis (L), dorsalis pedis (R) Skin: warm, dry, intact Neurological: no new focal deficit Psy/Mental Status: alert, normal affect, normal mood - Problem List Review Problem List Initiated/Reviewed/Updated: Yes - My Orders Last 24 Hours: My Active Orders 06/04/16 09:00 Metoprolol Succinate [Toprol XL] 50 mg PO DAILY levETIRAcetam [Keppra] 500 mg PO BID 06/05/16 07:37 Iron Sucrose Complex [Venofer] 200 mg Sodium Chloride 0.9% [Normal Saline] 250 ml IV ONETIME 06/05/16 07:45 Sodium Chloride 0.9% [Normal Saline] 250 ml IV ASDIRECTED 06/06/16 05:11 BASIC METABOLIC PANEL,BMP [CHEM] AM CBC WITH AUTO DIFF [HEME] AM MAGNESIUM [CHEM] AM 06/07/16 05:11 BASIC METABOLIC PANEL,BMP [CHEM] AM CBC WITH AUTO DIFF [HEME] AM MAGNESIUM [CHEM] AM 06/08/16 05:11 BASIC METABOLIC PANEL,BMP [CHEM] AM CBC WITH AUTO DIFF [HEME] AM MAGNESIUM [CHEM] AM 06/09/16 05:11 BASIC METABOLIC PANEL,BMP [CHEM] AM CBC WITH AUTO DIFF [HEME] AM MAGNESIUM [CHEM] AM - Plan Plan:: Assessment/Plan: Acute: Acute on Chronic Kidney Disease, Continues to improve - Risk Factors: Prostate Disorder and on Diuretics - Cr 4.2, baseline is 2 (obtained form secondary sources), ---> 3.9 ---> 3.1 - Continue IV Hydration - Renal U/S: small cyst on left kidney, 10.4 cm cystic structure bet left kidney and spleen (felt to be benign) - 250 cc bolus NS x 1 - Continue to avoid nephrotoxic agents Generalized Weakness - Has been progressive - Normal thyroid panel - Vit D level pending - Continue PT/OT - Consider SNF/Rehab placement, family and patient refused: he will go home with HHS: Nursing/PT/OT/HS Eval Anemia: Acute Vs Chronic (likely chronic from CKD) - Hgb is 9.9, no baseline comparison ---> 8.4 - No active bleed - Iron infusion x 1 - Repeat lab in the afternoon Resolved: S/p Hyperkalemia, Improving - K 7 at the clinic--> 5.7 --> 5.4 - 2/2 JOANNE worsened by K-sparing Diuretic - D/c Spironolactone - Received albuterol, insulin with D50, calcium gluconate and 15 gram kayexalate x1 in ED - Repeat BMP this evening, may continue same regimen above if level dose not improve significantly Chronic: Impaired Vision and Hearing HTN GERD HF with unknown EF Prostate Disorder Back Pain Peripheral Edema Seizure Rosacea Plan: He remains clinically stable Routine AM Labs Continue PT/OT SW/CM for d/c planning Seizure/Fall Precautions DVT ppx: SCDs Code status: DNR/DNI Additional orders as above Possible d/c in am
[2016-06-05] MEDS ORDERED: Sodium Chloride 0.9% 250 ML IV SCH (07:45)
[2016-06-05] MEDS ORDERED: Ibuprofen 600 MG Tab PO PRN (08:42)
[2016-06-05] MEDS ORDERED: diphenhydrAMINE 50 MG/ML SDV IVPUSH ONE (09:00)
[2016-06-05] MEDS ORDERED: Dexamethasone 4 MG/ML SDV IVPUSH ONE (09:00)
[2016-06-05] MEDS: Metoprolol Succinate 50 MG Tab.ER PO SCH (09:56)
[2016-06-05] MEDS: levETIRAcetam 500 MG Tab PO SCH ×2 (09:56→20:11)
[2016-06-05] MEDS: Sodium Chloride 0.9% 1,000 ML IV SCH (15:19)
--- NOTE | 2016-06-06 00:05 | PCM.DCSUM1 ---
Discharge Summary - Hospital Course Brief History: This is an 85 yo elderly white female with past medical hx/o Impaired Vision and Hearing, HF with Unknown, HTN, GERD, Hx/o Hemorrhoids, BPH, Chronic Back Pain, Hx/o Seizure and Rosacea who comes with c/o progressive generalized weakness. Patient is mostly bed bound. He uses a walker to get around but lately he has been requiring more help then usual. Patient lives with his . Per EMR, he has been fallen may times as evidenced by multiple bruises and skin breaks he got. He went in to see his PCP today to be evaluated for wheel chair but he was found to have abnormal labs. His Cr was 4.2 with a K 7. From there, he was brought over to ED for further medical treatment. In ED , he received one time dose of albuterol nebs, insulin with D50, 15 gram kayexalate and calcium gluconate before he was sent to the floor for further management. He was referred to me for Acute Kidney Injury, Hyperkalemia and Generalized Weakness. He is DNR/DNI. - Discharge Data Discharge Date: 06/06/16 Discharge Disposition: Home, Self-Care 01 Condition: Good - Discharge Diagnosis/Problem(s) (1) Acute renal failure SNOMED Code(s): 77912164 ICD Code: N17.9 - ACUTE KIDNEY FAILURE, UNSPECIFIED Status: Suspected Qualifiers: Acute renal failure type: unspecified Qualified Code(s): N17.9 - Acute kidney failure, unspecified (2) Anemia SNOMED Code(s): 130544170 ICD Code: D64.9 - ANEMIA, UNSPECIFIED Status: Chronic Qualifiers: Anemia type: unspecified type Qualified Code(s): D64.9 - Anemia, unspecified (3) Generalized weakness SNOMED Code(s): 17536814 ICD Code: R53.1 - WEAKNESS Status: Chronic (4) Hyperkalemia SNOMED Code(s): 53426334 ICD Code: E87.5 - HYPERKALEMIA Status: Resolved (5) Fall SNOMED Code(s): 8099043, 662690915 ICD Code: W19.XXXA - UNSPECIFIED FALL, INITIAL ENCOUNTER Status: Chronic Qualifiers: Encounter type: initial encounter Qualified Code(s): W19.XXXA - Unspecified fall, initial encounter - Patient Summary/Data Operative Procedure(s) Performed: None Complications: None Consults: Consultations 06/03/16 23:39 Consult to Case Management [CONS] Routine Consult to Scientific Recruiter [CONS] Routine Consult to Spiritual Care [CONS] Routine OT Evaluation and Treatment [CONS] Routine PT Evaluation and Treatment [CONS] Routine Hospital Course: Patient was primarily admitted for JOANNE associated with hyperkalemia. He was given supportive care and adequate hydration to improve his renal function from 3.9 to 2.9 on the day of discharge. His hyperkalemia slowly improved to 5.4 after her received treatment with D5W. We felt patient was not drinking adequate fluids and that his hyperkalemia was induced by his poor volume status aggravated by his K-sparing medication (aldactone). His hospital course was fairly complicated by his chronic anemia. No active bleed noted but he received a one time iron infusion. The rest of his chronic medical illness remained stable during this admission. As for his generalized weakness, patient received PT/OT. Patient is now ready for d/c. He will have [facility] to continue with his recovery. Patient was advised to drink adequate fluids. He is to have a repeat lab in 1 week. - Patient Instructions Diet: Usual Diet as Tolerated Activity: As Tolerated Driving: Do Not Drive Showering/Bathing: May Shower Notify Provider of: Fever, Increased Pain, Swelling and Redness, Nausea and/or Vomiting Other/Special Instructions: - Please take all medications as directed. - Please drink more fluids. - CBC and Renal Panel next week. - Follow up with your doctor after discharge - Discharge Plan Home Medications: Home Meds Metoprolol Succinate [Toprol XL] 50 mg PO DAILY 07/12/14 [History] levETIRAcetam [Levetiracetam ER] 500 mg PO BID 07/12/14 [History] Sprinolactone 25 mg PO DAILY 08/30/15 [History] Furosemide 40 mg PO ASDIRECTED #0 06/05/16 [Rx] Patient Handouts: Fall Prevention in the Home, [id number], Hyperkalemia, Easy -to-Read Referrals: Jodee Lorenz, NURSING TECHN [Primary Care Provider] - (Please call and schedule follow up appointment within 1-2 weeks with Jodee Lorenz first thing Tuesday. ) - Discharge Summary/Plan Comment DC Time >30 min.: Yes ( 45 mins) Discharge Summary/Plan Comment: Discharge to Home Due to listed medical diagnoses in this report, patient is in need of Skilled Home Health Services for PT/OT and home safety eval. Patient is home bound due to weakness, abnormal gait and poor mobility. He is dependent with care from his family and will benefit from services above to increase hi level of independence. His PCP, Jovita Lorenz follow up with his care. - General Info Date of Service: 06/06/16 Admission Dx/Problem (Free Text: Acute Kidney Injury and Hyperkalemia Subjective Update: Follow Up Functional Status: Reports: pain controlled, tolerating diet, ambulating, urinating. Denies: new symptoms - Review of Systems General: Reports: Weakness. Denies: Fever, Fatigue, Malaise, Chills HEENT: Reports: no symptoms Pulmonary: Denies: shortness of breath Cardiovascular: Denies: Chest Pain, Palpitations, Dyspnea on Exertion Gastrointestinal: Denies: Abdominal pain, Nausea, Vomiting Genitourinary: Reports: no symptoms Musculoskeletal: Reports: no symptoms Skin: Reports: no symptoms Neurological: Reports: Weakness, Gait Disturbance. Denies: Dizziness, Difficulty Walking Psychiatric: Denies: depression, anxiety, hallucinations Systems Review Comment: No overnight or acute issues. He is doing relatively well. - Patient Data Vitals - Most Recent: Last Vital Signs Temp 37.1 C 06/05/16 20:56 Pulse 53 L 06/05/16 20:56 Resp 16 06/05/16 20:56 BP 136/52 L 06/05/16 20:56 Pulse Ox 99 06/05/16 20:56 Weight - Most Recent: 69.763 kg I&O - Last 24 hours: Intake & Output 06/05/16 06/05/16 06/06/16 14:59 22:59 07:59 Intake Total 450 3440 Balance 450 3440 Lab Results - Last 24 hrs: Laboratory Results - last 24 hr 06/05/16 06/05/16 06/05/16 Range/Units 04:55 04:55 13:00 WBC 5.53 4.26 (4.23-9.07) K/mm3 RBC 2.80 L 2.83 L (4.63-6.08) M/mm3 Hgb 8.4 L 8.6 L (13.7-17.5) gm/L Hct 26.3 L 26.8 L (40.1-51.0) % MCV 93.9 H 94.7 H (79.0-92.2) fl MCH 30.0 30.4 (25.7-32.2) pg MCHC 31.9 L 32.1 L (32.2-35.5) g/dl RDW Std Deviation 43.6 43.4 (35.1-43.9) fL Plt Count 213 218 (163-337) K/mm3 MPV 11.0 10.3 (9.4-12.3) fl Neut % (Auto) 67.2 79.5 H (34.0-67.9) % Lymph % (Auto) 12.3 L 10.1 L (21.8-53.1) % [place] % (Auto) 10.8 5.9 (5.3-12.2) % Eos % (Auto) 9.0 H 3.8 (0.8-7.0) Baso % (Auto) 0.5 0.5 (0.1-1.2) % Neut # 3.71 3.39 (1.78-5.38) K/mm3 Lymph # 0.68 L 0.43 L (1.32-3.57) K/mm3 [place] # 0.60 0.25 L (0.30-0.82) K/mm3 Eos # 0.50 0.16 (0.04-0.54) K/mm3 Baso # 0.03 0.02 (0.01-0.08) K/mm3 Manual Slide Review Not Reportable Sodium 139 (136-145) mEq/L Potassium 4.2 (3.5-5.1) mEq/L Chloride 109 H (98-107) mEq/L Carbon Dioxide 18 L (21-32) mEq/L Anion Gap 16.2 H (5-15) BUN 62 H (7-18) mg/dL Creatinine 3.1 H (0.7-1.3) mg/dL Est Cr Clr Drug Dosing 16.58 mL/min Estimated GFR (MDRD) 19 (>60) mL/min BUN/Creatinine Ratio 20.0 H (14-18) Glucose 96 (83-115) mg/dL Calcium 7.9 L (8.5-10.1) mg/dL Magnesium 2.1 (1.8-2.4) mg/dl JP Results - Last 24 hrs: Microbiology 06/04/16 04:38 Urine Culture - Preliminary Urine, Clean Catch MIXED MAYRA SUGGESTIVE OF CONTAMINATION. Med Orders - Current: Current Medications Acetaminophen (Tylenol) 650 mg PO Q4H PRN PRN Reason: Pain (Mild 1-3)/fever Albuterol/Ipratropium (Duoneb 3.0-0.5 Mg/3 Ml) 3 ml NEB Q4H PRN PRN Reason: Shortness Of Breath/wheezing Bisacodyl (Dulcolax) 5 mg PO DAILY PRN PRN Reason: Constipation Hydralazine HCl (Apresoline) 10 mg IVPUSH Q4H PRN PRN Reason: Hypertension Hydromorphone HCl (Dilaudid) 0.25 mg IVPUSH Q2H PRN PRN Reason: Pain (severe 7-10) Promethazine HCl 12.5 mg/ (Sodium Chloride) 50.5 mls @ 100 mls/hr IV Q6H PRN PRN Reason: Nausea/Vomiting Sodium Chloride (Normal Saline) 1,000 mls @ 125 mls/hr IV ASDIRECTED [facility] Last Admin: 06/05/16 15:19 Dose: 125 mls/hr Ibuprofen (Motrin) 600 mg PO Q6H PRN PRN Reason: FEVER/HEADACHE Levetiracetam (Keppra) 500 mg PO BID [facility] Last Admin: 06/05/16 20:11 Dose: 500 mg Lorazepam (Ativan) 0.25 mg IV Q6H PRN PRN Reason: Anxiety Magnesium Sulfate (Pharmacy To Dose - Magnesium Replacement) 1 dose .XX ASDIRECTED [facility] Metoprolol Succinate (Toprol Xl) 50 mg PO DAILY [facility] Last Admin: 06/05/16 09:56 Dose: 50 mg Metoprolol Tartrate (Lopressor) 5 mg IVPUSH Q4H PRN PRN Reason: Tachycardia Ondansetron HCl (Zofran) 4 mg IV Q6H PRN PRN Reason: Nausea/Vomiting Polyethylene Glycol (Miralax) 17 gm PO DAILY PRN PRN Reason: Constipation Potassium Chloride (Pharmacy To Dose - Potassium Replacement) 1 dose .XX ASDIRECTED [facility] Senna/Docusate Sodium (Senna Plus) 1 tab PO BID PRN PRN Reason: Constipation Sodium Chloride (Saline Flush) 10 ml FLUSH ASDIRECTED PRN PRN Reason: Keep Vein Open Last Admin: 06/03/16 18:24 Dose: 10 ml Temazepam (Restoril) 15 mg PO BEDTIME PRN PRN Reason: Sleep Discontinued Medications Acetaminophen/Hydrocodone Bitart (Wing 325-5 Mg) 1 tab PO Q4H PRN PRN Reason: Pain (moderate 4-6) Albuterol (Proventil Neb Soln) 2.5 mg NEB ONETIME ONE Stop: 06/03/16 17:42 Last Admin: 06/03/16 18:32 Dose: 2.5 mg Calcium Gluconate (Calcium Gluconate) 1 gm IVPUSH ONETIME ONE Stop: 06/03/16 17:44 Last Admin: 06/03/16 18:23 Dose: 1 gm Calcium Gluconate (Calcium Gluconate) 1 gm IVPUSH ONETIME ONE Stop: 06/04/16 00:05 Last Admin: 06/04/16 01:37 Dose: 1 gm Dexamethasone (Dexamethasone) 4 mg IVPUSH ONETIME ONE Stop: 06/05/16 09:01 Last Admin: 06/05/16 09:56 Dose: 4 mg Dextrose/Water (Dextrose 50% In Water) 50 ml IVPUSH ONETIME ONE Stop: 06/03/16 17:42 Last Admin: 06/03/16 18:07 Dose: 50 ml Diphenhydramine HCl (Benadryl) 25 mg IVPUSH ONETIME ONE Stop: 06/05/16 09:01 Last Admin: 06/05/16 09:57 Dose: 25 mg Sodium Chloride (Normal Saline) 1,000 mls @ 1,000 mls/hr IV .BOLUS STA Stop: 06/03/16 18:39 Last Admin: 06/03/16 18:10 Dose: 1,000 mls/hr Iron Sucrose 400 mg/ Sodium (Chloride) 270 mls @ 85 mls/hr IV ONETIME ONE Stop: 06/05/16 12:10 Last Admin: 06/05/16 09:58 Dose: 85 mls/hr Sodium Chloride (Normal Saline) 250 mls @ 999 mls/hr IV ASDIRECTED [facility] Insulin Human Regular (Humulin R) 10 unit SUBCUT ONETIME ONE PRN Reason: Protocol Stop: 06/03/16 17:43 Last Admin: 06/03/16 18:11 Dose: 10 units Sodium Polystyrene Sulfonate (Kayexalate) 15 gm PO ONETIME ONE Stop: 06/03/16 17:44 Last Admin: 06/03/16 18:41 Dose: 15 gm Sodium Polystyrene Sulfonate (Kayexalate) 15 gm PO Q8H [facility] Last Admin: 06/04/16 10:08 Dose: 15 gm Spironolactone (Aldactone) 25 mg PO DAILY [facility] - Exam General: Reports: alert, cooperative, no acute distress HEENT: Reports: Pupils equal, Pupils reactive, EOMI, Mucous membr. moist/pink Neck: Reports: supple, trachea midline, no JVD Lungs: Reports: Normal respiratory effort, Decreased breath sounds Cardiovascular: Reports: Regular Rate, Regular Rhythm Abdomen: Reports: bowel sounds present, soft, no tenderness, no distension (Male) Exam: Deferred Rectal (Males) Exam: Deferred Back Exam: Reports: normal inspection, decreased range of motion Extremities: Reports: no edema, normal pulses, no tenderness/swelling, no clubbing, no cyanosis, no calf tenderness Skin: Reports: warm, intact Neurological: Reports: no new focal deficit Psy/Mental Status: Reports: alert, normal affect, normal mood *Q Meaningful Use (DIS) - VTE *Q VTE Criteria *Q: - Stroke *Q Stroke Criteria *Q: - AMI *Q AMI Criteria *Q:
[2016-06-06] MEDS: levETIRAcetam 500 MG Tab PO SCH (08:31)
[2016-06-06] MEDS: Metoprolol Succinate 50 MG Tab.ER PO SCH (08:31)
[2016-06-06 12:06] VITALS: BP 113/43
== END 2016-06-06 14:52 | disposition home or self-care (01) | DRG 683 ==
LOC: JD.ED 17:27 → JD.MS 19:05
PROVIDERS: ADMIT Internal Medicine; ATTEND Internal Medicine
DX: E87.5 Hyperkalemia (principal); N17.9 Acute kidney failure, unspecified; I13.0 Hypertensive heart and chronic kidney disease with heart failure and stage 1 through stage 4 chronic kidney disease, or unspecified chronic kidney disease; E87.6 Hypokalemia; I11.0 Hypertensive heart disease with heart failure; N18.9 Chronic kidney disease, unspecified; I50.9 Heart failure, unspecified; Z87.891 Personal history of nicotine dependence; G89.29 Other chronic pain; M54.9 Dorsalgia, unspecified; R53.1 Weakness; D64.9 Anemia, unspecified; Z91.81 History of falling; K21.9 Gastro-esophageal reflux disease without esophagitis; C61 Malignant neoplasm of prostate; G40.909 Epilepsy, unspecified, not intractable, without status epilepticus; H91.93 Unspecified hearing loss, bilateral; Z96.651 Presence of right artificial knee joint; Z79.899 Other long term (current) drug therapy; Z88.1 Allergy status to other antibiotic agents; Z88.6 Allergy status to analgesic agent; Z91.02 Food additives allergy status; Z91.011 Allergy to milk products; L71.9 Rosacea, unspecified
CPT/HCPCS: 93005; 94664; 96361; 96372; 96374; 96375; 99285; A9270; J0610; J1817; J7040; J7050; J7060; 36415; 76770; 76770-26; 80048; 81001; 82306; 83735; 84439; 84443; 85025; 87086; 97116-GP; 97161-GP; 97166-GO; 99222; 99232; 99284-25; J1100; J1200; J1756

== ENCOUNTER 2016-09-28 10:53 | Inpatient (IN) | payer MEDICARE, OTHER ==
[2016-09-28] MEDS ORDERED: Sodium Chloride 0.9% 10 ML Syringe FLUSH PRN (10:58)
[2016-09-28] MEDS ORDERED: Sodium Chloride 0.9% 250 ML IV ONE (11:40)
--- NOTE | 2016-09-28 12:04 | EDM.PDOC ---
ED HPI GENERAL MEDICAL PROBLEM - General Chief Complaint: General Stated Complaint: [facility] Time Seen by Provider: 09/28/16 10:57 Source of Information: Reports: Patient, Family, RN Notes Reviewed (Daughter) - History of Present Illness INITIAL COMMENTS - FREE TEXT/NARRATIVE: 85-year-old gentleman comes in with dehydration, probable renal failure. He does have history of renal insufficiency and was admitted with renal failure 3 or 4 months ago. His daughter states that he did require about 4 days in the hospital for rehydration before being stable enough to go home. His daughter states that he has seen a agriculture intern. It has been decided that renal dialysis is not a viable or reasonable option for him at his advanced age and quality of life severely deteriorating. He has been managing at home. With the assistance of a walker he has been able to get to and from the table to eat and to and from the bathroom. Ends most of the rest of his time in a chair or in bed sleeping. His daughter states for the last 2 days he has been too weak to stand or walk. He has not been eating or drinking well. There is been no chest pain. He has occasional cough but not more than usual. No vomiting or diarrhea. No fever or chills. His CODE STATUS is DNR. - Related Data Allergies Allergy/AdvReac Type Severity Reaction Status Date / Time acetaminophen Allergy Cannot Verified 09/28/16 10:58 Remember azithromycin [From Zithromax] Allergy Rash Verified 09/28/16 10:58 chocolate flavor Allergy Cannot Verified 09/28/16 10:58 Remember Dairy Products Allergy Cannot Verified 09/28/16 10:58 Remember hydrocodone Allergy Cannot Verified 09/28/16 10:58 Remember phenytoin sodium Allergy Rash Verified 09/28/16 10:58 [From Dilantin] phenytoin sodium extended Allergy Rash Verified 09/28/16 10:58 [From Dilantin] pravastatin Allergy Cannot Verified 09/28/16 10:58 Remember prednisone Allergy Cannot Verified 09/28/16 10:58 Remember tramadol Allergy Cannot Verified 09/28/16 10:58 Remember wheat Allergy Cannot Verified 09/28/16 10:58 Remember soy Allergy Cannot Uncoded 09/28/16 10:58 Remember Home Meds: Home Meds Metoprolol Succinate [Toprol XL] 25 mg PO DAILY 07/12/14 [History] levETIRAcetam [Levetiracetam ER] 500 mg PO BID 07/12/14 [History] Furosemide 40 mg PO BID 09/28/16 [History] Past Medical History HEENT History: Reports: Hard of Hearing, Impaired Vision, Other (See Below) Other HEENT History: [place]HEARING [place] Cardiovascular History: Reports: Heart Failure, Hypertension Gastrointestinal History: Reports: GERD, Hemorrhoids Genitourinary History: Reports: Acute Renal Failure, Prostate Disorder Other Genitourinary History: prostate cancer; Musculoskeletal History: Reports: Back Pain, Chronic Neurological History: Reports: Seizure Psychiatric History: Reports: None Oncologic (Cancer) History: Reports: Prostate Other Oncologic History: daughter states it has never spread beyond the prostate and that he has had nothing done for it. Dermatologic History: Reports: Other (See Below) Other Dermatologic History: rosacea - Past Surgical History Head Surgeries/Procedures: Reports: None HEENT Surgical History: Reports: Cataract Surgery Cardiovascular Surgical History: Reports: None GI Surgical History: Reports: Colonoscopy Musculoskeletal Surgical History: Reports: Knee Replacement Social & Family History - Family History Family Medical History: Noncontributory - Tobacco Use Smoking Status *Q: Former Smoker Used Tobacco, but Quit: Yes Month Tobacco Last Used: 1959 Second Hand Smoke Exposure: No - Caffeine Use Caffeine Use: Reports: Coffee - Alcohol Use Days Per Week of Alcohol Use: 0 - Recreational Drug Use Recreational Drug Use: No Recreational Drug Use Frequency: Rarely ED ROS GENERAL - Review of Systems Review Of Systems: See Below Constitutional: Denies: Fever, Chills, Diaphoresis HEENT: Denies: Sinus Problem, Throat Pain Respiratory: Reports: Shortness of Breath (Mild chronically), Cough Cardiovascular: Reports: Edema (Bilateral lower legs chronically, somewhat worse than usual), Lightheadedness. Denies: Chest Pain (Occasional nonproductive) Endocrine: Reports: Fatigue GI/Abdominal: Denies: Abdominal Pain, Diarrhea, Nausea, Vomiting Musculoskeletal: Reports: Back Pain (Mild) Skin: Reports: No Symptoms Neurological: Reports: Difficulty Walking (Generalized), Weakness. Denies: Trouble Speaking ED EXAM, GENERAL - Physical Exam Exam: See Below General Appearance: Alert Eye Exam: Bilateral Eye: PERRL Throat/Mouth: Normal Inspection Head: No: Facial Swelling Neck: Supple Respiratory/Chest: No Respiratory Distress, Rales (Mild bilateral) Cardiovascular: Regular Rate, Rhythm GI/Abdominal: Soft, Non-Tender. No: Guarding Back Exam: No: CVA Tenderness (L), CVA Tenderness (R) Extremities: Pedal Edema (Quite severe bilateral leg edema, moderate erythema present bilateral) Neurological: Alert, No Motor/Sensory Deficits Skin Exam: Warm, Dry EKG INTERPRETATION EKG Date: 09/28/16 Rhythm: NSR P-Wave: Present QRS: Normal ST-T: Normal Course - Vital Signs Last Recorded V/S: Last Vital Signs Temp 98.3 F 09/28/16 10:58 Pulse 68 09/28/16 10:58 Resp 28 H 09/28/16 10:58 BP 148/63 H 09/28/16 10:58 Pulse Ox 96 09/28/16 10:58 - Orders/Labs/Meds Orders: Active Orders 24 hr Category Date Time Status EKG 12 Lead [EKG Documentation Completion] [RC] STAT Care 09/28/16 10:58 Active Peripheral IV Care [RC] . DIRECTED Care 09/28/16 10:59 Active Chest 1V Frontal [CR] Stat Exams 09/28/16 10:58 Taken Sodium Chloride 0.9% [Normal Saline] 1,000 ml Med 09/28/16 12:15 Active IV ASDIRECTED Sodium Chloride 0.9% [Saline Flush] Med 09/28/16 10:58 Active 10 ml FLUSH ASDIRECTED PRN Peripheral IV Insertion Adult [OM.PC] Stat Oth 09/28/16 10:59 Ordered Medication Orders Sodium Chloride (Normal Saline) 1,000 mls @ 75 mls/hr IV ASDIRECTED [facility] Sodium Chloride (Saline Flush) 10 ml FLUSH ASDIRECTED PRN PRN Reason: Keep Vein Open Last Admin: 09/28/16 11:32 Dose: 10 ml Labs: Laboratory Tests 09/28/16 09/28/16 09/28/16 Range/Units 11:18 11:18 11:18 WBC 6.19 (4.23-9.07) K/mm3 RBC 3.26 L (4.63-6.08) M/mm3 Hgb 9.5 L (13.7-17.5) gm/L Hct 29.5 L (40.1-51.0) % MCV 90.5 (79.0-92.2) fl MCH 29.1 (25.7-32.2) pg MCHC 32.2 (32.2-35.5) g/dl RDW Std Deviation 42.9 (35.1-43.9) fL Plt Count 181 (163-337) K/mm3 MPV 10.2 (9.4-12.3) fl Neut % (Auto) 62.9 (34.0-67.9) % Lymph % (Auto) 18.3 L (21.8-53.1) % [place] % (Auto) 17.8 H (5.3-12.2) % Eos % (Auto) 0.3 L (0.8-7.0) Baso % (Auto) 0.5 (0.1-1.2) % Neut # (Auto) 3.90 (1.78-5.38) K/mm3 Lymph # (Auto) 1.13 L (1.32-3.57) K/mm3 [place] # (Auto) 1.10 H (0.30-0.82) K/mm3 Eos # (Auto) 0.02 L (0.04-0.54) K/mm3 Baso # (Auto) 0.03 (0.01-0.08) K/mm3 Manual Slide Review Abnormal smear Sodium 140 (136-145) mEq/L Potassium 4.0 (3.5-5.1) mEq/L Chloride 107 (98-107) mEq/L Carbon Dioxide 23 (21-32) mEq/L Anion Gap 14.0 (5-15) BUN 48 H (7-18) mg/dL Creatinine 3.1 H (0.7-1.3) mg/dL Est Cr Clr Drug Dosing 17.10 mL/min Estimated GFR (MDRD) 19 (>60) mL/min BUN/Creatinine Ratio 15.5 (14-18) Glucose 110 (83-115) mg/dL Calcium 8.5 (8.5-10.1) mg/dL Total Bilirubin 0.7 (0.2-1.0) mg/dL AST 12 L (15-37) U/L ALT 14 L (16-63) U/L Alkaline Phosphatase 91 (46-116) U/L Troponin I 0.266 H* (0.00-0.056) ng/mL B-Natriuretic Peptide 1351 H (0-100) pg/mL Total Protein 6.3 L (6.4-8.2) g/dl Albumin 2.6 L (3.4-5.0) g/dl Globulin 3.7 gm/dL Albumin/Globulin Ratio 0.7 L (1-2) Meds: Medications Generic Name Dose Route Start Last Admin Trade Name Freq PRN Reason Stop Dose Admin Sodium Chloride 1,000 mls @ 75 mls/hr 09/28/16 12:15 Normal Saline IV ASDIRECTED [facility] Sodium Chloride 10 ml 09/28/16 10:58 09/28/16 11:32 Saline Flush FLUSH 10 ml ASDIRECTED PRN Administration Keep Vein Open Discontinued Medications Generic Name Dose Route Start Last Admin Trade Name Freq PRN Reason Stop Dose Admin Sodium Chloride 250 mls @ 999 mls/hr 09/28/16 11:40 09/28/16 11:45 Normal Saline IV 09/28/16 11:55 999 mls/hr .BOLUS ONE Administration Departure - Departure Time of Disposition: 12:34 Disposition: Admitted As Inpatient 65 Condition: Serious Clinical Impression: CHF, Congestive heart failure Renal failure (ARF), acute on chronic Qualifiers: Acute renal failure type: unspecified Chronic kidney disease stage: unspecified stage Qualified Code(s): N17.9 - Acute kidney failure, unspecified; N18.9 - Chronic kidney disease, unspecified Anemia Qualifiers: Anemia type: unspecified type Qualified Code(s): D64.9 - Anemia, unspecified - Discharge Information Forms: ED Department Discharge ED Communication - Discussed Case With (1) Discussed Case With (1): Admitting Provider (Dr [place], decision to admit at about 12:40) - My Orders Last 24 Hours: My Active Orders 09/28/16 10:58 EKG 12 Lead [EKG Documentation Completion] [RC] STAT Chest 1V Frontal [CR] Stat Sodium Chloride 0.9% [Saline Flush] 10 ml FLUSH ASDIRECTED PRN 09/28/16 10:59 Peripheral IV Care [RC] . DIRECTED Peripheral IV Insertion Adult [OM.PC] Stat 09/28/16 12:15 Sodium Chloride 0.9% [Normal Saline] 1,000 ml IV ASDIRECTED - Assessment/Plan Last 24 Hours: My Active Orders 09/28/16 10:58 EKG 12 Lead [EKG Documentation Completion] [RC] STAT Chest 1V Frontal [CR] Stat Sodium Chloride 0.9% [Saline Flush] 10 ml FLUSH ASDIRECTED PRN 09/28/16 10:59 Peripheral IV Care [RC] . DIRECTED Peripheral IV Insertion Adult [OM.PC] Stat 09/28/16 12:15 Sodium Chloride 0.9% [Normal Saline] 1,000 ml IV ASDIRECTED
[2016-09-28] MEDS ORDERED: Sodium Chloride 0.9% 1,000 ML IV SCH (12:15)
--- NOTE | 2016-09-28 12:52 | PCM.HP ---
H&P History of Present Illness - General Date of Service: 09/28/16 Admit Problem/Dx: Generalized Weakness and Failure to Thrive Source of Information: Patient, Family, Old Records, Provider, RN Notes Reviewed History Limitations: Reports: Physical Impairment, Other (Impaired Hearing) - History of Present Illness Initial Comments - Free Text/Narative: This is an 85-year-old elderly white male with past medical history of impaired Vision and Hearing, HF with Reduced EF, HTN, GERD, BPH, Back Pain, Anemia of Chronic Disease (likely from CKD), Seizure Disorder, Stasis Dermatitis, Rosacea and CKD Stage IV who comes in the emergency department with complains of failure to thrive and dehydration. Patient carries a history of chronic renal failure. He has seen a rock singer in the past, unfortunately he is not a good candidate for renal dialysis. Patient comes from home. He has been progressively getting weak and his quality of life seems to be deteriorating per daughters who were present at bedside. He is dependent with his care from his spouse. His appetite has been marginally to poor. He complains of shortness of breath and occasional dry cough. He denies any systemic symptoms. His initial workup in the emergency department shows a CBC remarkable for an RBC of 2.26, hemoglobin of 9.5, hematocrit of 29.5, lymphocyte of 18.3, and monocyte of 17.8. His chemistry is remarkable for BUN of 48, creatinine of 3.1, AST of 12, ALT of 14, troponin of 0.266, BNP of 1351, total protein of 6.3 and albumin of 2.62.6. His CXR and CT scan shows bilateral lateral moderately large pleural effusions and bibasilar atelectasis. Patient is being admitted for acute congestive heart failure, bilateral pleural effusions failure to thrive, and progressive generalized weakness. He is DNR/ DNI. - Related Data Allergies/Adverse Reactions: Allergies Allergy/AdvReac Type Severity Reaction Status Date / Time acetaminophen Allergy Cannot Verified 09/28/16 10:58 Remember azithromycin [From Zithromax] Allergy Rash Verified 09/28/16 10:58 chocolate flavor Allergy Cannot Verified 09/28/16 10:58 Remember Dairy Products Allergy Cannot Verified 09/28/16 10:58 Remember hydrocodone Allergy Cannot Verified 09/28/16 10:58 Remember phenytoin sodium Allergy Rash Verified 09/28/16 10:58 [From Dilantin] phenytoin sodium extended Allergy Rash Verified 09/28/16 10:58 [From Dilantin] pravastatin Allergy Cannot Verified 09/28/16 10:58 Remember prednisone Allergy Cannot Verified 09/28/16 10:58 Remember tramadol Allergy Cannot Verified 09/28/16 10:58 Remember wheat Allergy Cannot Verified 09/28/16 10:58 Remember soy Allergy Cannot Uncoded 09/28/16 10:58 Remember Home Medications: Home Meds Metoprolol Succinate [Toprol XL] 25 mg PO DAILY 07/12/14 [History] levETIRAcetam [Levetiracetam ER] 500 mg PO BID 07/12/14 [History] Furosemide 40 mg PO BID 09/28/16 [History] Past Medical History HEENT History: Reports: Hard of Hearing, Impaired Vision, Other (See Below) Other HEENT History: [place] Cardiovascular History: Reports: Heart Failure, Hypertension Gastrointestinal History: Reports: GERD, Hemorrhoids Genitourinary History: Reports: Acute Renal Failure, Prostate Disorder Other Genitourinary History: prostate cancer; Musculoskeletal History: Reports: Back Pain, Chronic Neurological History: Reports: Seizure Psychiatric History: Reports: None Oncologic (Cancer) History: Reports: Prostate Other Oncologic History: daughter states it has never spread beyond the prostate and that he has had nothing done for it. Dermatologic History: Reports: Other (See Below) Other Dermatologic History: rosacea - Past Surgical History Head Surgeries/Procedures: Reports: None HEENT Surgical History: Reports: Cataract Surgery Cardiovascular Surgical History: Reports: None GI Surgical History: Reports: Colonoscopy Musculoskeletal Surgical History: Reports: Knee Replacement Social & Family History - Family History Family Medical History: Noncontributory - Tobacco Use Smoking Status *Q: Former Smoker Used Tobacco, but Quit: Yes Month Tobacco Last Used: 1959 Second Hand Smoke Exposure: No - Caffeine Use Caffeine Use: Reports: Coffee - Alcohol Use Days Per Week of Alcohol Use: 0 - Recreational Drug Use Recreational Drug Use: No Recreational Drug Use Frequency: Rarely H&P Review of Systems - Review of Systems: Review Of Systems: See Below General: Reports: Weakness, Fatigue. Denies: Fever, Chills HEENT: Reports: No Symptoms Pulmonary: Reports: Shortness of Breath, Cough Cardiovascular: Reports: Edema. Denies: Chest Pain, Palpitations, Dyspnea on Exertion, Lightheadedness, Blood Pressure Problem Gastrointestinal: Denies: Abdominal Pain, Nausea, Vomiting Genitourinary: Reports: Frequency Musculoskeletal: Reports: Back Pain Skin: Denies: Cyanosis, Jaundice, Mottled, Bruising, Pruritis, Rash, Lesions Psychiatric: Denies: Depression, Anxiety, Hallucinations Neurological: Reports: Pre-Existing Deficit, Difficulty Walking, Weakness, Gait Disturbance. Denies: Confusion Hematologic/Lymphatic: Reports: No Symptoms Exam - Exam Exam: See Below - Vital Signs Vital Signs: Last Vital Signs Temp 36.8 C 09/28/16 10:58 Pulse 68 09/28/16 10:58 Resp 28 H 09/28/16 10:58 BP 148/63 H 09/28/16 10:58 Pulse Ox 96 09/28/16 10:58 Weight: 81.647 kg - Exam Quality Assessment: No: Supplemental Oxygen General: Alert, Cooperative, Other (Very Hard of Hearing). No: Mild Distress HEENT: Conjunctiva Clear, EACs Clear, EOMI, Hearing Intact, Mucosa Moist & [place] , Nares Patent, Normal Nasal Septum, Posterior Pharynx Clear, Pupils Equal, Pupils Reactive, TMs Clear Neck: Supple, Trachea Midline, +2 Carotid Pulse wo Bruit, Full Range of Motion Lungs: Normal Respiratory Effort, Decreased Breath Sounds Cardiovascular: Regular Rate, Regular Rhythm Abdomen: Normal Bowel Sounds, Soft. No: Organomegaly, Tenderness (Male) Exam: Deferred Rectal (Males) Exam: Deferred Back Exam: Normal Inspection, Decreased Range of Motion Extremities: Edema. No: Cyanosis, Calf Tenderness Peripheral Pulses: 1+: Posterior Tibial (L), Posterior Tibial (R), Dorsalis Pedis (L), Dorsalis Pedis (R) Skin: Warm, Dry, Intact, Decubitis Skin Alteration Location (Drawings Not To Scale): 1 - 1 cm x 0.5 cm left buttock 2 - dry and erythematous 3 - dry and erythematous Neuro Extensive - Mental Status: Oriented x3, Normal Cognition, Memory Intact, Slow Response to Commands Neuro Extensive - Motor, Sensory, Reflexes: CN II-XII Intact (limited due to inability to hear clearly), Abnormal Gait Psychiatric: Alert, Normal Mood. No: Normal Affect (flat affect) - Patient Data Lab Results Last 24 hrs: Laboratory Results - last 24 hr 09/28/16 09/28/16 09/28/16 Range/Units 11:18 11:18 11:18 WBC 6.19 (4.23-9.07) K/mm3 RBC 3.26 L (4.63-6.08) M/mm3 Hgb 9.5 L (13.7-17.5) gm/L Hct 29.5 L (40.1-51.0) % MCV 90.5 (79.0-92.2) fl MCH 29.1 (25.7-32.2) pg MCHC 32.2 (32.2-35.5) g/dl RDW Std Deviation 42.9 (35.1-43.9) fL Plt Count 181 (163-337) K/mm3 MPV 10.2 (9.4-12.3) fl Neut % (Auto) 62.9 (34.0-67.9) % Lymph % (Auto) 18.3 L (21.8-53.1) % [place] % (Auto) 17.8 H (5.3-12.2) % Eos % (Auto) 0.3 L (0.8-7.0) Baso % (Auto) 0.5 (0.1-1.2) % Neut # (Auto) 3.90 (1.78-5.38) K/mm3 Lymph # (Auto) 1.13 L (1.32-3.57) K/mm3 [place] # (Auto) 1.10 H (0.30-0.82) K/mm3 Eos # (Auto) 0.02 L (0.04-0.54) K/mm3 Baso # (Auto) 0.03 (0.01-0.08) K/mm3 Manual Slide Review Abnormal smear Sodium 140 (136-145) mEq/L Potassium 4.0 (3.5-5.1) mEq/L Chloride 107 (98-107) mEq/L Carbon Dioxide 23 (21-32) mEq/L Anion Gap 14.0 (5-15) BUN 48 H (7-18) mg/dL Creatinine 3.1 H (0.7-1.3) mg/dL Est Cr Clr Drug Dosing 17.10 mL/min Estimated GFR (MDRD) 19 (>60) mL/min BUN/Creatinine Ratio 15.5 (14-18) Glucose 110 (83-115) mg/dL Calcium 8.5 (8.5-10.1) mg/dL Total Bilirubin 0.7 (0.2-1.0) mg/dL AST 12 L (15-37) U/L ALT 14 L (16-63) U/L Alkaline Phosphatase 91 (46-116) U/L Troponin I 0.266 H* (0.00-0.056) ng/mL B-Natriuretic Peptide 1351 H (0-100) pg/mL Total Protein 6.3 L (6.4-8.2) g/dl Albumin 2.6 L (3.4-5.0) g/dl Globulin 3.7 gm/dL Albumin/Globulin Ratio 0.7 L (1-2) Result Diagrams: 09/28/16 11:18 09/28/16 11:18 EKG INTERPRETATION EKG Date: 09/28/16 Time: 11:02 Rhythm: Other (Sinus Rhythm) Rate (Beats/Min): 66 [place]/PQ Interval: Short LILY *Q Meaningful Use (ADM) - VTE *Q VTE Criteria *Q: - Stroke *Q Stroke Criteria *Q: - AMI *Q AMI Criteria *Q: Problem List Initiated/Reviewed/Updated: Yes Orders Last 24hrs: Active Orders 24 hr Category Date Time Status EKG 12 Lead [EKG Documentation Completion] [RC] STAT Care 09/28/16 10:58 Active Peripheral IV Care [RC] . DIRECTED Care 09/28/16 10:59 Active Chest 1V Frontal [CR] Stat Exams 09/28/16 10:58 Taken Sodium Chloride 0.9% [Normal Saline] 1,000 ml Med 09/28/16 12:15 Active IV ASDIRECTED Sodium Chloride 0.9% [Saline Flush] Med 09/28/16 10:58 Active 10 ml FLUSH ASDIRECTED PRN Peripheral IV Insertion Adult [OM.PC] Stat Oth 09/28/16 10:59 Ordered Medication Orders Sodium Chloride (Normal Saline) 1,000 mls @ 75 mls/hr IV ASDIRECTED PEDRO Sodium Chloride (Saline Flush) 10 ml FLUSH ASDIRECTED PRN PRN Reason: Keep Vein Open Last Admin: 09/28/16 11:32 Dose: 10 ml Assessment/Plan Comment:: Assessment/Plan: Acute: Failure To Thrive - Mostly Bed-bound - Dependent on spouse for care - Poor intake and clinically dehydrated - Dietary consult Congestive Heart Failure - HF unknown EF - BNP 1351 - 2D echo in am - Hold off loop diuretic, daily weights, salt and fluid restriction - Metolazone 2.5 mg po BID Bilateral Pleural Effusions - 2/2 HF with Unknown EF - Moderately large on CXR and CT scan - He is not on blood thinner - Will offer Diagnostic and Therapeutic Thoracentesis - Will likely do the right side and possibly the other tomorrow Elevated Troponin Level - Troponin x 1 0.226, maybe elevated due to CKD - Cannot r/o NSTEMI - CE x 2 more and repeat EKG in AM Generalized Weakness - 2/2 declining health: worsening renal and cardiac function - Also poor oral intake - Vit D level and Thyroid panel - PT/OT consult Open Sore/Decubitus Ulcer - 1 cm x 0.5 cm - Left Gluteal - Risk Factor: bound and not mobile - Skin breakdown prevention Chronic: Impaired Vision and Hearing HF with Reduced EF HTN GERD BPH Back Pain Anemia of Chronic Disease (likely from CKD) Seizure Disorder Stasis Dermatitis Hypoalbuminemia Rosacea CKD Stage IV, GFR is at baseline, He has seen a specialist but was told he is not a good candidate for dialysis Plan: Admit to Med-Surge w/ Telemetry Routine AM Labs Hold lasix home dose IS ad directed PT/OT consult Seizure/Fall Precautions SW/CM for d/c planning Additional orders as above Code status: DNR/DNI Recommend SNF/NH
[2016-09-28] MEDS ORDERED: hydrALAZINE 20 MG/ML SDV IVPUSH PRN (12:57)
[2016-09-28] MEDS ORDERED: Metoprolol Tartrate 5 MG/5 ML SDV IVPUSH PRN (12:57)
[2016-09-28] MEDS ORDERED: Docusate Sodium 100 MG Cap PO PRN (12:58)
[2016-09-28] MEDS ORDERED: LORazepam 2 MG/ML MDV IVPUSH PRN (12:58)
[2016-09-28] MEDS ORDERED: oxyCODONE 5 MG Tab PO PRN (12:58)
[2016-09-28] MEDS ORDERED: LORazepam 2 MG/ML MDV IV PRN (12:58)
[2016-09-28] MEDS ORDERED: Bisacodyl 5 MG Tab PO PRN (12:58)
[2016-09-28] MEDS ORDERED: Promethazine 12.5 MG in Sodium Chloride 0.9% 50 ML IV PRN (12:58)
[2016-09-28] MEDS ORDERED: Ondansetron 4 MG/2 ML SDV IV PRN (12:58)
[2016-09-28] MEDS ORDERED: Albuterol/Ipratropium 3.0-0.5 MG/3 ML Neb Soln NEB PRN (12:58)
[2016-09-28] MEDS ORDERED: Temazepam 7.5 MG Cap PO PRN (13:15)
[2016-09-28] MEDS ORDERED: HYDROmorphone 0.5 MG/0.5 ML Syringe IVPUSH PRN (13:15)
--- NOTE | 2016-09-28 14:06 | CT ---
CT chest Technique: Multiple axial sections through the chest were obtained. Comparison: Previous chest x-ray performed earlier on the same day (11:38 AM) and chest x-ray of 08/30/15. Findings: Moderately large bilateral pleural effusions are seen. Areas of atelectasis or noted within both lung bases. Mild increased density is seen within the areas of atelectasis raising the possibility of previous aspiration. Lymph nodes are seen within both axillary regions which are believed to be within normal limits. Pulmonary arteries are slightly prominent which is felt to be incidental. Coronary artery calcification is seen. Atherosclerotic calcification is noted within the aorta and within the branch vessels of the aorta. No adenopathy is seen. Heart is enlarged. Cystic structure is seen within left upper abdomen most likely representing large cyst off the left kidney. Bone window settings were reviewed which shows scattered degenerative change within the spine. Previous sternotomy is noted. Impression: 1. Cardiomegaly. Moderately large bilateral pleural effusions. 2. Atelectasis within both lung bases showing some increased density possibly due to previous aspiration. 3. Other incidental findings as noted above. Diagnostic code #3
--- NOTE | 2016-09-28 18:32 | PCM.PRNOTE ---
- Free Text/Narrative Note: Thoracentesis DATE OF PROCEDURE: 09/28/2016 PREOPERATIVE DIAGNOSIS: Bilateral Pleural Effusion POSTOPERATIVE DIAGNOSIS: Bilateral Pleural Effusion PROCEDURE PERFORMED: U/S Guided Diagnostic and Therapeutic Right Sided Thoracentesis SURGEON: Seymour Toledo DO LAUNDROMAT MANAGER: Rosa, ICU-Nurse and ALLIE Amado-Nurse DESCRIPTION OF PROCEDURE: After informed consent was obtained, signed, the patient had ultrasound localization in the right hemithorax. The patient was sterilely prepped and topical lidocaine was induced. Stab incision was made and a thoracentesis catheter was inserted and 2050 mL of clear straw colored fluid was obtained without difficulty. Estimated Blood Loss: Minimal The patient tolerated the procedure well w/o any complications. Post-procedure chest x-ray is pending.
--- NOTE | 2016-09-28 19:10 | CR ---
Chest: Portable view of the chest was obtained. Comparison: Previous chest x-ray performed earlier in the same day (11:38 AM). Decreased right sided pleural effusion is seen from prior exam. Moderately large left sided pleural effusion remains. Small right apical pneumothorax is seen. Heart is enlarged. Pulmonary vessels remain congested. Sternotomy is noted. Impression: 1. Continuing findings of CHF. 2. Decreased right sided pleural effusion with small pneumothorax now seen. 3. Stable left-sided pleural effusion is noted. Diagnostic code #5
--- NOTE | 2016-09-28 20:26 | PCM.SN ---
- Free Text/Narrative Note: Patient will have supplemental O2 and repeat CXR in am. SCDs for DVT prophylaxis. Family aware we may have to do his left side tomorrow.
[2016-09-28] MEDS: levETIRAcetam 500 MG Tab PO SCH (20:34)
[2016-09-28] MEDS: Metolazone 2.5 MG Tab PO SCH (21:25)
[2016-09-29] MEDS: Metolazone 2.5 MG Tab PO SCH ×2 (06:25→16:15)
--- NOTE | 2016-09-29 08:03 | CR ---
Chest: Portable view of the chest was obtained. Comparison: Previous chest x-ray of 08/30/15. Small to moderate sized bilateral pleural effusions are seen. Pulmonary vessels are diffusely congested. Heart size at the upper limits of normal. Previous sternotomy is noted. Bony structures are osteopenic. Impression: 1. Findings felt compatible with CHF as described above. Diagnostic code #3
[2016-09-29] MEDS: levETIRAcetam 500 MG Tab PO SCH ×2 (08:08→21:36)
[2016-09-29] MEDS: Metoprolol Succinate 25 MG Tab.ER PO SCH (08:08)
--- NOTE | 2016-09-29 08:23 | CR ---
Chest: Portable view of the chest was obtained. Comparison: Previous chest x-ray of 09/28/16. Small right sided pleural effusion is noted with slightly larger left-sided pleural effusion being seen. Small apical pneumothorax is seen which has slightly increased in size from prior exam. Heart is enlarged. Pulmonary vessels remain congested which appear stable. Sternotomy wires are noted. Bony structures are osteopenic. Degenerative change is seen within both shoulders and acromioclavicular joints. Impression: 1. Small right apical pneumothorax which has slightly increased in size from previous exam. 2. Other portions of the chest x-ray appear fairly stable. Diagnostic code #3
--- NOTE | 2016-09-29 09:16 | PCM.PN ---
- General Info Date of Service: 09/29/16 Admission Dx/Problem (Free Text): Generalized Weakness and Failure to Thrive Functional Status: Reports: pain controlled, tolerating diet, ambulating, urinating, new symptoms - Review of Systems General: Denies: Fever, Weakness, Fatigue, Malaise, Chills HEENT: Reports: no symptoms Pulmonary: Denies: shortness of breath Cardiovascular: Denies: Chest Pain Gastrointestinal: Denies: Abdominal pain, Nausea, Vomiting Genitourinary: Reports: no symptoms Musculoskeletal: Reports: no symptoms Skin: Reports: no symptoms Neurological: Reports: Difficulty Walking, Weakness, Gait Disturbance. Denies: Confusion Psychiatric: Denies: depression, anxiety, hallucinations Systems Review Comment:: No overnight or acutes issues. He is just fine. He has no new complaints. - Patient Data Vitals - most recent: Last Vital Signs Temp 37.1 C 09/29/16 08:03 Pulse 66 09/29/16 08:08 Resp 22 H 09/29/16 08:03 BP 138/107 H 09/29/16 08:08 Pulse Ox 100 09/29/16 08:03 Weight - most recent: 77.791 kg I&O - last 24 hours: Intake & Output 09/28/16 09/29/16 09/29/16 22:59 06:59 14:59 Intake Total 0 200 Output Total 350 Balance 0 -150 Lab Results last 24 hrs: Laboratory Results - last 24 hr 09/28/16 09/28/16 09/28/16 Range/Units 16:15 18:30 20:37 WBC (4.23-9.07) K/mm3 RBC (4.63-6.08) M/mm3 Hgb (13.7-17.5) gm/L Hct (40.1-51.0) % MCV (79.0-92.2) fl MCH (25.7-32.2) pg MCHC (32.2-35.5) g/dl RDW Std Deviation (35.1-43.9) fL Plt Count (163-337) K/mm3 MPV (9.4-12.3) fl Neut % (Auto) (34.0-67.9) % Lymph % (Auto) (21.8-53.1) % [place] % (Auto) (5.3-12.2) % Eos % (Auto) (0.8-7.0) Baso % (Auto) (0.1-1.2) % Neut # (Auto) (1.78-5.38) K/mm3 Lymph # (Auto) (1.32-3.57) K/mm3 [place] # (Auto) (0.30-0.82) K/mm3 Eos # (Auto) (0.04-0.54) K/mm3 Baso # (Auto) (0.01-0.08) K/mm3 Sodium (136-145) mEq/L Potassium (3.5-5.1) mEq/L Chloride (98-107) mEq/L Carbon Dioxide (21-32) mEq/L Anion Gap (5-15) BUN (7-18) mg/dL Creatinine (0.7-1.3) mg/dL Est Cr Clr Drug Dosing mL/min Estimated GFR (MDRD) (>60) mL/min BUN/Creatinine Ratio (14-18) Glucose (83-115) mg/dL Calcium (8.5-10.1) mg/dL Magnesium (1.8-2.4) mg/dl Lactate Dehydrogenase 117 (85-227) U/L CK-MB (CK-2) (0-3.6) ng/ml Troponin I (0.00-0.056) ng/mL B-Natriuretic Peptide (0-100) pg/mL Total Protein 6.3 L (6.4-8.2) g/dl Free T4 (0.76-1.46) ng/dL TSH 3rd Generation (0.358-3.74) uIU/mL Fluid Type Pleural fluid Fluid Volume 2050 ML Fluid Color Light yellow Fluid Appearance Clear Fluid pH 8.0 (4.5-10.0) Fluid WBC 0.38 (0.20-0.60) k/mm*3 Fluid RBC (0.00-0.010) 10*6/uL Fluid Seg Neutrophils 9.0 (0-25) % Fluid Lymphocytes 85.0 H (0-78) % Fluid Monocytes 6.0 (0-71) % Fluid Glucose 139 mg/dL Fluid Total Protein 2.4 gm/dl Fluid LDH 69 U/L C.difficile 027-NAP1-B1 Presumptive negative C. difficile Tox (PCR) Negative 09/28/16 09/28/16 09/29/16 Range/Units 20:37 20:47 05:11 WBC (4.23-9.07) K/mm3 RBC (4.63-6.08) M/mm3 Hgb (13.7-17.5) gm/L Hct (40.1-51.0) % MCV (79.0-92.2) fl MCH (25.7-32.2) pg MCHC (32.2-35.5) g/dl RDW Std Deviation (35.1-43.9) fL Plt Count (163-337) K/mm3 MPV (9.4-12.3) fl Neut % (Auto) (34.0-67.9) % Lymph % (Auto) (21.8-53.1) % [place] % (Auto) (5.3-12.2) % Eos % (Auto) (0.8-7.0) Baso % (Auto) (0.1-1.2) % Neut # (Auto) (1.78-5.38) K/mm3 Lymph # (Auto) (1.32-3.57) K/mm3 [place] # (Auto) (0.30-0.82) K/mm3 Eos # (Auto) (0.04-0.54) K/mm3 Baso # (Auto) (0.01-0.08) K/mm3 Sodium (136-145) mEq/L Potassium (3.5-5.1) mEq/L Chloride (98-107) mEq/L Carbon Dioxide (21-32) mEq/L Anion Gap (5-15) BUN (7-18) mg/dL Creatinine (0.7-1.3) mg/dL Est Cr Clr Drug Dosing mL/min Estimated GFR (MDRD) (>60) mL/min BUN/Creatinine Ratio (14-18) Glucose (83-115) mg/dL Calcium (8.5-10.1) mg/dL Magnesium (1.8-2.4) mg/dl Lactate Dehydrogenase (85-227) U/L CK-MB (CK-2) 1.4 (0-3.6) ng/ml Troponin I 0.229 H* (0.00-0.056) ng/mL B-Natriuretic Peptide 1273 H (0-100) pg/mL Total Protein (6.4-8.2) g/dl Free T4 1.14 (0.76-1.46) ng/dL TSH 3rd Generation 2.992 (0.358-3.74) uIU/mL Fluid Type Fluid Volume ML Fluid Color Fluid Appearance Fluid pH (4.5-10.0) Fluid WBC (0.20-0.60) k/mm*3 Fluid RBC (0.00-0.010) 10*6/uL Fluid Seg Neutrophils (0-25) % Fluid Lymphocytes (0-78) % Fluid Monocytes (0-71) % Fluid Glucose mg/dL Fluid Total Protein gm/dl Fluid LDH U/L C.difficile 027-NAP1-B1 C. difficile Tox (PCR) 09/29/16 09/29/16 Range/Units 05:55 05:55 WBC 5.40 (4.23-9.07) K/mm3 RBC 3.36 L (4.63-6.08) M/mm3 Hgb 9.8 L (13.7-17.5) gm/L Hct 30.5 L (40.1-51.0) % MCV 90.8 (79.0-92.2) fl MCH 29.2 (25.7-32.2) pg MCHC 32.1 L (32.2-35.5) g/dl RDW Std Deviation 43.5 (35.1-43.9) fL Plt Count 179 (163-337) K/mm3 MPV 11.2 (9.4-12.3) fl Neut % (Auto) 64.8 (34.0-67.9) % Lymph % (Auto) 15.2 L (21.8-53.1) % [place] % (Auto) 15.0 H (5.3-12.2) % Eos % (Auto) 4.4 (0.8-7.0) Baso % (Auto) 0.4 (0.1-1.2) % Neut # (Auto) 3.50 (1.78-5.38) K/mm3 Lymph # (Auto) 0.82 L (1.32-3.57) K/mm3 [place] # (Auto) 0.81 (0.30-0.82) K/mm3 Eos # (Auto) 0.24 (0.04-0.54) K/mm3 Baso # (Auto) 0.02 (0.01-0.08) K/mm3 Sodium 139 (136-145) mEq/L Potassium 3.5 (3.5-5.1) mEq/L Chloride 108 H (98-107) mEq/L Carbon Dioxide 22 (21-32) mEq/L Anion Gap 12.5 (5-15) BUN 47 H (7-18) mg/dL Creatinine 2.8 H (0.7-1.3) mg/dL Est Cr Clr Drug Dosing 18.94 mL/min Estimated GFR (MDRD) 22 (>60) mL/min BUN/Creatinine Ratio 16.8 (14-18) Glucose 107 (83-115) mg/dL Calcium 8.0 L (8.5-10.1) mg/dL Magnesium 2.2 (1.8-2.4) mg/dl Lactate Dehydrogenase (85-227) U/L CK-MB (CK-2) 1.3 (0-3.6) ng/ml Troponin I 0.163 H* (0.00-0.056) ng/mL B-Natriuretic Peptide (0-100) pg/mL Total Protein (6.4-8.2) g/dl Free T4 (0.76-1.46) ng/dL TSH 3rd Generation (0.358-3.74) uIU/mL Fluid Type Fluid Volume ML Fluid Color Fluid Appearance Fluid pH (4.5-10.0) Fluid WBC (0.20-0.60) k/mm*3 Fluid RBC (0.00-0.010) 10*6/uL Fluid Seg Neutrophils (0-25) % Fluid Lymphocytes (0-78) % Fluid Monocytes (0-71) % Fluid Glucose mg/dL Fluid Total Protein gm/dl Fluid LDH U/L C.difficile 027-NAP1-B1 C. difficile Tox (PCR) Raffi Results last 24 hrs: Microbiology 09/28/16 18:30 Gram Stain - Final Pleural Fluid - Pleural Cavity, Right 09/28/16 18:30 BLAKE Preparation - Preliminary Other - Lung, Right Med Orders - Current: Current Medications Albuterol/Ipratropium (Duoneb 3.0-0.5 Mg/3 Ml) 3 ml NEB Q4H PRN PRN Reason: Shortness Of Breath/wheezing Bisacodyl (Dulcolax) 5 mg PO DAILY PRN PRN Reason: Constipation Docusate Sodium (Colace) 100 mg PO BID PRN PRN Reason: Constipation Hydralazine HCl (Apresoline) 10 mg IVPUSH Q4H PRN PRN Reason: Hypertension Hydromorphone HCl (Dilaudid) 0.25 mg IVPUSH Q4H PRN PRN Reason: Pain (severe 7-10) Last Admin: 09/28/16 18:00 Dose: 0.25 mg Promethazine HCl 12.5 mg/ (Sodium Chloride) 50.5 mls @ 100 mls/hr IV Q6H PRN PRN Reason: Nausea/Vomiting Levetiracetam (Keppra) 500 mg PO BID [facility] Last Admin: 09/29/16 08:08 Dose: 500 mg Lorazepam (Ativan) 0.25 mg IV Q6H PRN PRN Reason: Anxiety Magnesium Sulfate (Pharmacy To Dose - Magnesium Replacement) 0 dose .XX ASDIRECTED PRN PRN Reason: RX TO MONITOR MAG LEVELS Metolazone (Zaroxolyn) 2.5 mg PO BIDDIURETIC [facility] Last Admin: 09/29/16 06:25 Dose: 2.5 mg Metoprolol Succinate (Toprol Xl) 25 mg PO DAILY [facility] Last Admin: 09/29/16 08:08 Dose: 25 mg Metoprolol Tartrate (Lopressor) 5 mg IVPUSH Q4H PRN PRN Reason: Tachycardia Ondansetron HCl (Zofran) 4 mg IV Q6H PRN PRN Reason: Nausea/Vomiting Oxycodone HCl (Oxycodone) 5 mg PO Q6H PRN PRN Reason: Pain (moderate 4-6) Polyethylene Glycol (Miralax) 17 gm PO DAILY PRN PRN Reason: Constipation Potassium Chloride (Pharmacy To Dose - Potassium Replacement) 0 dose .XX ASDIRECTED PRN PRN Reason: RX TO MONITOR K LEVELS Senna/Docusate Sodium (Senna Plus) 1 tab PO BID PRN PRN Reason: Constipation Sodium Chloride (Saline Flush) 10 ml FLUSH ASDIRECTED PRN PRN Reason: Keep Vein Open Last Admin: 09/28/16 11:32 Dose: 10 ml Temazepam (Restoril) 7.5 mg PO BEDTIME PRN PRN Reason: SLEEP Discontinued Medications Sodium Chloride (Normal Saline) 250 mls @ 999 mls/hr IV .BOLUS ONE Stop: 09/28/16 11:55 Last Admin: 09/28/16 11:45 Dose: 999 mls/hr Sodium Chloride (Normal Saline) 1,000 mls @ 75 mls/hr IV ASDIRECTED [facility] Lorazepam (Ativan) 2 mg IVPUSH Q4H PRN PRN Reason: Seizures - Exam Quality Assessment: supplemental oxygen (off his face) General: alert, cooperative, no acute distress HEENT: Pupils equal, Pupils reactive, Mucous membr. moist/pink, Other (very hard of hearing) Neck: supple, trachea midline, no thyromegaly Lungs: Normal respiratory effort, Decreased breath sounds, Rales Cardiovascular: Regular Rate, Regular Rhythm Abdomen: bowel sounds present, soft, no tenderness, no distension (Male) Exam: Deferred Back Exam: Normal Inspection, Decreased Range of Motion Extremities: normal pulses, no tenderness/swelling, no clubbing, no cyanosis, no calf tenderness, edema Peripheral Pulses: 1+: Dorsalis Pedis (L), Dorsalis Pedis (R) Skin: warm, dry, intact Neurological: no new focal deficit Psy/Mental Status: alert, normal affect, normal mood - Problem List Review Problem List Initiated/Reviewed/Updated: Yes - My Orders Last 24 Hours: My Active Orders 09/28/16 18:20 CULTURE FUNGUS [MREF] Routine 09/28/16 18:30 CELL COUNT,BODY FLUID [BF] Routine CULTURE AFB AND SMEAR [MREF] Routine CULTURE BODY FLUID + SMEAR [RM] Routine GLUCOSE,BODY FLUID [BF] Routine BLAKE PREP [MYC] Routine LACTATE DEHYDROGENASE,BODY FL [BF] Routine MISC TEST Routine PH,BODY FLUID [BF] Routine PROTEIN,BODY FLUID [BF] Routine 09/28/16 20:20 Antiembolic Devices [RC] BID SCD [Sequential Compression Device] [OM.PC] Routine 09/28/16 20:37 VIT D2 D3,25-HYDROXY LC-MS/MS [REF] Urgent 09/28/16 20:55 Echo Comp wo Cont [US] Routine 09/28/16 21:00 Metolazone [Zaroxolyn] 2.5 mg PO BIDDIURETIC 09/28/16 [place] Heart Healthy Diet [DIET] - Plan Plan:: Assessment/Plan: Acute: Failure To Thrive - Mostly Bed-bound - Dependent on spouse for care - Poor intake and clinically dehydrated - Dietary consulted Congestive Heart Failure - HF unknown EF - BNP 1351 ---> 1273 - 2D echo: completed this am - Hold off loop diuretic, daily weights, salt and fluid restriction - Metolazone 2.5 mg po BID Bilateral Pleural Effusions - 2/2 HF with Unknown EF - Moderately large on CXR and CT scan - He is not on blood thinner - S/p Right Sided Thoracentesis - Will Offer Therapeutic Thoracentesis on left hemothorax Small Right Apical Pneumothorax - S/p Thoracentesis - On Supplemental O2 but non-compliant Elevated Troponin Level - Troponin 0.226 --> 0.229--> 0.163 - Cannot r/o NSTEMI - CKMB all normal Generalized Weakness - 2/2 declining health: worsening renal and cardiac function - Also poor oral intake - Vit D level pending - Thyroid panel normal - Continue PT/OT Open Sore/Decubitus Ulcer - 1 cm x 0.5 cm - Left Gluteal - Risk Factor: bound and not mobile - Skin breakdown prevention HTN - Not controlled - Hold Lasix - Start Norvasc 10 mg po daily - PRN Hydralazine Chronic: Impaired Vision and Hearing HF with Reduced EF GERD BPH Back Pain Anemia of Chronic Disease (likely from CKD) Seizure Disorder Stasis Dermatitis Hypoalbuminemia Rosacea CKD Stage IV, GFR is at baseline, He has seen a specialist but was told he is not a good candidate for dialysis Plan: He is fairly stable Routine AM Labs Hold lasix home dose IS ad directed PT/OT consult Seizure/Fall Precautions SW/CM for d/c planning Additional orders as above Code status: DNR/DNI Recommend SNF/NH
[2016-09-29] MEDS: Potassium Chloride 20 MEQ Tab.ER PO SCH ×2 (11:31→16:15)
[2016-09-29] MEDS: Morphine 2 MG/ML Syringe IVPUSH ONE ×2 (17:26→17:35)
--- NOTE | 2016-09-29 18:49 | CR ---
Chest: Frontal view of the chest was obtained utilizing portable technique. Comparison: Previous chest x-ray performed earlier on same day (07:13 AM). Decreased left-sided pleural effusion is seen from prior exam. Pulmonary vessels remain increased. Small apical right-sided pneumothorax is seen. Very minimal lucency is seen within left lung apex which is felt to represent a trace pneumothorax. Heart is enlarged. Bony structures are grossly intact. Sternotomy wires are again seen. Mild atelectasis is noted within the right lung base. Heart remains enlarged. Impression: 1. Decreased pleural effusion from prior exam. Trace pneumothorax is noted within the left upper lung. 2. Small right apical pneumothorax is seen. 3. Mild right basilar atelectasis and stable pulmonary vascular congestion. 4. Other stable findings as described above. Diagnostic code #3
--- NOTE | 2016-09-29 21:33 | PCM.SN ---
- Free Text/Narrative Note: Post thoracentesis chest x-ray report reads decreased pleural effusion from prior exam. Trace pneumothorax is noted within the left lung base. Small right apical pneumothorax is seen. Mild right basilar atelectasis and stable pulmonary vascular congestion. We'll encourage patient to try to keep supplemental O2 on. Spoke to RT to monitor O2 therapy for resolution on bilateral pneumothorax.
--- NOTE | 2016-09-29 21:33 | PCM.PRNOTE ---
- Free Text/Narrative Note: Thoracentesis DATE OF PROCEDURE: 09/29/2016 PREOPERATIVE DIAGNOSIS: Bilateral Pleural Effusion POSTOPERATIVE DIAGNOSIS: Bilateral Pleural Effusion PROCEDURE PERFORMED: U/S Guided Diagnostic and Therapeutic Left Sided Thoracentesis SURGEON: Seymour Toledo DO HIDE AND SKIN PROCESSING WORKER: ALLIE Botello-Nurse and ALLIE Arce-Graduate Nurse DESCRIPTION OF PROCEDURE: After informed consent was obtained, signed, the patient had ultrasound localization in the left hemithorax. The patient was sterilely prepped and topical lidocaine was induced. Stab incision was made and a thoracentesis catheter was inserted and 1150 mL of clear straw colored fluid was obtained without difficulty. Estimated Blood Loss: Minimal The patient tolerated the procedure well w/o any complications. Post-procedure chest x-ray is pending.
--- NOTE | 2016-09-29 23:59 | PCM.SN ---
- Free Text/Narrative Note: 09-29-16 Start 2330 End 2350 Called to med surg for difficult IV start. Multiple attempts were made per nursing staff with no success. 20 ga 1.88" catheter placed in left distal antecubital with ultrasound guidance on second attempt. IV flushes well (40cc with no infiltration) but lacks good blood return. Secured with sterile tegaderm , tape, and coban. Patient tolerated procedure well. Shadi Huber PHARMACY SERVICES REPRESENTATIVE
[2016-09-30] MEDS: Metolazone 2.5 MG Tab PO SCH ×2 (05:11→13:48)
--- NOTE | 2016-09-30 08:37 | PCM.PN ---
- General Info Date of Service: 09/30/16 Admission Dx/Problem (Free Text): Generalized Weakness and Failure to Thrive Subjective Update: Follow Up Functional Status: Reports: pain controlled, tolerating diet, ambulating, urinating. Denies: new symptoms - Review of Systems General: Denies: Fever, Weakness, Fatigue, Malaise, Chills HEENT: Reports: no symptoms Pulmonary: Denies: shortness of breath Cardiovascular: Denies: Chest Pain, Palpitations, Dyspnea on Exertion, Lightheadedness Gastrointestinal: Denies: Abdominal pain, Nausea, Vomiting Genitourinary: Reports: no symptoms Musculoskeletal: Reports: no symptoms Skin: Denies: cyanosis, jaundice, pallor, diaphoresis Neurological: Reports: Gait Disturbance. Denies: Confusion, Difficulty Walking Psychiatric: Denies: depression, anxiety, agitation, hallucinations Systems Review Comment:: No overnight or acute issues. he is relatively stable. He has no new complaints. - Patient Data Vitals - most recent: Last Vital Signs Temp 36.2 C 09/30/16 02:20 Pulse 65 09/30/16 02:20 Resp 16 09/30/16 02:20 BP 127/63 09/30/16 02:20 Pulse Ox 100 09/30/16 02:20 Weight - most recent: 77.61 kg I&O - last 24 hours: Intake & Output 09/29/16 09/30/16 09/30/16 22:59 06:59 14:59 Intake Total 550 700 Output Total 600 350 Balance -50 350 Lab Results last 24 hrs: Laboratory Results - last 24 hr 09/28/16 09/30/16 09/30/16 Range/Units 18:30 05:39 05:39 WBC 5.87 (4.23-9.07) K/mm3 RBC 3.56 L (4.63-6.08) M/mm3 Hgb 10.3 L (13.7-17.5) gm/L Hct 32.1 L (40.1-51.0) % MCV 90.2 (79.0-92.2) fl MCH 28.9 (25.7-32.2) pg MCHC 32.1 L (32.2-35.5) g/dl RDW Std Deviation 43.2 (35.1-43.9) fL Plt Count 190 (163-337) K/mm3 MPV 11.0 (9.4-12.3) fl Neut % (Auto) 67.6 (34.0-67.9) % Lymph % (Auto) 13.1 L (21.8-53.1) % [place] % (Auto) 11.6 (5.3-12.2) % Eos % (Auto) 7.2 H (0.8-7.0) Baso % (Auto) 0.3 (0.1-1.2) % Neut # (Auto) 3.97 (1.78-5.38) K/mm3 Lymph # (Auto) 0.77 L (1.32-3.57) K/mm3 [place] # (Auto) 0.68 (0.30-0.82) K/mm3 Eos # (Auto) 0.42 (0.04-0.54) K/mm3 Baso # (Auto) 0.02 (0.01-0.08) K/mm3 Sodium 138 (136-145) mEq/L Potassium 4.2 (3.5-5.1) mEq/L Chloride 107 (98-107) mEq/L Carbon Dioxide 22 (21-32) mEq/L Anion Gap 13.2 (5-15) BUN 49 H (7-18) mg/dL Creatinine 2.6 H (0.7-1.3) mg/dL Est Cr Clr Drug Dosing 20.33 mL/min Estimated GFR (MDRD) 24 (>60) mL/min BUN/Creatinine Ratio 18.8 H (14-18) Glucose 110 (83-115) mg/dL Calcium 8.3 L (8.5-10.1) mg/dL Magnesium 2.1 (1.8-2.4) mg/dl Body Fluid Site Right lung Fluid Type Pleural fluid Fluid Volume 2050 ML Fluid Color Light yellow Fluid Appearance Clear Fluid pH 8.0 (4.5-10.0) Fluid WBC 0.38 (0.20-0.60) k/mm*3 Fluid RBC (0.00-0.010) 10*6/uL Fluid Diff Comment Not Reportable Fluid Seg Neutrophils 9.0 (0-25) % Fluid Lymphocytes 85.0 H (0-78) % Fluid Monocytes 6.0 (0-71) % Fl Polymorphonucl Cell Not Reportable Fluid Glucose 139 mg/dL Fluid Total Protein 2.4 gm/dl Fluid LDH 69 U/L Raffi Results last 24 hrs: Microbiology 09/28/16 18:30 BLAKE Preparation - Final Other - Lung, Right 09/28/16 18:30 Gram Stain - Final Pleural Fluid - Pleural Cavity, Right Body Fluid Culture - Preliminary NO GROWTH AFTER 1 DAY Med Orders - Current: Current Medications Albuterol/Ipratropium (Duoneb 3.0-0.5 Mg/3 Ml) 3 ml NEB Q4H PRN PRN Reason: Shortness Of Breath/wheezing Amlodipine Besylate (Norvasc) 10 mg PO DAILY [facility] Bisacodyl (Dulcolax) 5 mg PO DAILY PRN PRN Reason: Constipation Docusate Sodium (Colace) 100 mg PO BID PRN PRN Reason: Constipation Hydralazine HCl (Apresoline) 10 mg IVPUSH Q4H PRN PRN Reason: Hypertension Last Admin: 09/29/16 16:39 Dose: 10 mg Hydromorphone HCl (Dilaudid) 0.25 mg IVPUSH Q4H PRN PRN Reason: Pain (severe 7-10) Last Admin: 09/28/16 18:00 Dose: 0.25 mg Promethazine HCl 12.5 mg/ (Sodium Chloride) 50.5 mls @ 100 mls/hr IV Q6H PRN PRN Reason: Nausea/Vomiting Levetiracetam (Keppra) 500 mg PO BID [facility] Last Admin: 09/29/16 21:36 Dose: 500 mg Lorazepam (Ativan) 0.25 mg IV Q6H PRN PRN Reason: Anxiety Magnesium Sulfate (Pharmacy To Dose - Magnesium Replacement) 0 dose .XX ASDIRECTED PRN PRN Reason: RX TO MONITOR MAG LEVELS Metolazone (Zaroxolyn) 2.5 mg PO BIDDIURETIC [facility] Last Admin: 09/30/16 05:11 Dose: 2.5 mg Metoprolol Succinate (Toprol Xl) 25 mg PO DAILY [facility] Last Admin: 09/29/16 08:08 Dose: 25 mg Metoprolol Tartrate (Lopressor) 5 mg IVPUSH Q4H PRN PRN Reason: Tachycardia Ondansetron HCl (Zofran) 4 mg IV Q6H PRN PRN Reason: Nausea/Vomiting Oxycodone HCl (Oxycodone) 5 mg PO Q6H PRN PRN Reason: Pain (moderate 4-6) Last Admin: 09/29/16 17:32 Dose: 5 mg Polyethylene Glycol (Miralax) 17 gm PO DAILY PRN PRN Reason: Constipation Potassium Chloride (Pharmacy To Dose - Potassium Replacement) 0 dose .XX ASDIRECTED PRN PRN Reason: RX TO MONITOR K LEVELS Senna/Docusate Sodium (Senna Plus) 1 tab PO BID PRN PRN Reason: Constipation Sodium Chloride (Saline Flush) 10 ml FLUSH ASDIRECTED PRN PRN Reason: Keep Vein Open Last Admin: 09/28/16 11:32 Dose: 10 ml Temazepam (Restoril) 7.5 mg PO BEDTIME PRN PRN Reason: SLEEP Discontinued Medications Sodium Chloride (Normal Saline) 250 mls @ 999 mls/hr IV .BOLUS ONE Stop: 09/28/16 11:55 Last Admin: 09/28/16 11:45 Dose: 999 mls/hr Sodium Chloride (Normal Saline) 1,000 mls @ 75 mls/hr IV ASDIRECTED [facility] Lorazepam (Ativan) 2 mg IVPUSH Q4H PRN PRN Reason: Seizures Morphine Sulfate (Morphine) 0.25 mg IVPUSH ONETIME ONE Stop: 09/29/16 17:19 Last Admin: 09/29/16 17:35 Dose: Not Given Potassium Chloride (Klor-Con M20) 40 meq PO Q4H [facility] Stop: 09/29/16 16:01 Last Admin: 09/29/16 16:15 Dose: 40 meq - Exam Quality Assessment: supplemental oxygen General: alert, cooperative, no acute distress HEENT: Pupils equal, Pupils reactive, EOMI, Mucous membr. moist/pink Neck: supple, trachea midline, no JVD Lungs: Normal respiratory effort, Decreased breath sounds, Rales Cardiovascular: Regular Rate, Regular Rhythm Abdomen: bowel sounds present, soft, no tenderness, no distension (Male) Exam: Deferred Back Exam: Normal Inspection, Decreased Range of Motion Extremities: no tenderness/swelling, no cyanosis, edema Peripheral Pulses: 1+: Dorsalis Pedis (L), Dorsalis Pedis (R) Skin: warm, dry, intact Neurological: no new focal deficit Psy/Mental Status: alert, normal affect, normal mood - Problem List Review Problem List Initiated/Reviewed/Updated: Yes - My Orders Last 24 Hours: My Active Orders 09/30/16 09:00 amLODIPine [Norvasc] 10 mg PO DAILY - Plan Plan:: Assessment/Plan: Acute: Congestive Heart Failure - HF unknown EF - BNP 1351 ---> 1273 - 2D echo: LV ejection fraction 50-55%. Severely dilated left atrium. Moderate mitral valve and tricuspid valve regurgitation. - Daily weights, salt and fluid restriction - IS as directed - Metolazone 2.5 mg po BID - Bumex 0.5 mg IVP x1 Bilateral Pleural Effusions, residual - 2/2 HF with Unknown EF - Moderately large on CXR and CT scan - He is not on blood thinner - S/p Bilateral Thoracentesisx - > 3L of straw colored pleural fluid removed - Pleural fluid cytology shows no malignant cells Bilateral Pneumothorax: Persistent small right apical - Left sided pneumothorax, resolved - S/p Thoracentesis - On Supplemental O2 but non-compliant, encourage to keep O2 on Elevated Troponin Level - Likely from troponin leak - Troponin 0.226 --> 0.229--> 0.163 - Cannot r/o NSTEMI - CKMB all normal Generalized Weakness, Improved - 2/2 declining health: worsening renal and cardiac function - Also poor oral intake - Vit D level (he was low back in 06/04/2016) still pending - Thyroid panel normal - Continue PT/OT Open Sore/Decubitus Ulcer - 1 cm x 0.5 cm - Left Gluteal - Risk Factor: bound and not mobile - Skin breakdown prevention HTN - More controlled - Hold Lasix - Start Norvasc 10 mg po daily - PRN Hydralazine Resolved: S/p Failure To Thrive, - Mostly Bed-bound - Dependent on spouse for care - Poor intake and clinically dehydrated - Dietary consulted Chronic: Impaired Vision and Hearing HF with Reduced EF GERD BPH Back Pain Anemia of Chronic Disease (likely from CKD) Seizure Disorder Stasis Dermatitis Hypoalbuminemia Rosacea CKD Stage IV, GFR is at baseline, He has seen a specialist but was told he is not a good candidate for dialysis Plan: He remains clinically stable He has been ambulating w/o difficulties Continue current treatment Routine AM Labs Continue PT/OT Seizure/Fall Precautions SW/CM for d/c planning Additional orders as above Encourage to use IS as directed Code status: DNR/DNI Recommend SNF/NH
[2016-09-30] MEDS: amLODIPine 10 MG Tab PO SCH (09:03)
[2016-09-30] MEDS: levETIRAcetam 500 MG Tab PO SCH ×2 (09:03→21:14)
[2016-09-30] MEDS: Metoprolol Succinate 25 MG Tab.ER PO SCH (09:06)
--- NOTE | 2016-09-30 09:45 | CR ---
Chest: Two views of the chest are obtained. Comparison: Previous chest x-ray 09/29/16. Increased density is noted within both lung bases. Findings are worse on the right side. Right lower lung findings most likely due to chronic change. Slight atelectasis is also seen within both lung bases. Heart size mildly enlarged. Previous sternotomy is noted. Pulmonary vessels are congested. Lucency is seen within the right upper lung. This is felt compatible with small residual pneumothorax. No left-sided pneumothorax is seen. Minimal right sided pleural effusion is seen. Impression: 1. Small persisting right apical pneumothorax is believed to be present. 2. Other portions of the chest are felt to be stable. Diagnostic code #3
[2016-09-30] MEDS ORDERED: Bumetanide 1 MG/4 ML MDV IVPUSH ONE (14:28)
[2016-09-30] MEDS: Dronabinol 2.5 MG Cap PO SCH (17:28)
[2016-10-01] MEDS: Metolazone 2.5 MG Tab PO SCH ×2 (06:28→14:35)
[2016-10-01] MEDS: Metoprolol Succinate 25 MG Tab.ER PO SCH (10:18)
[2016-10-01] MEDS: levETIRAcetam 500 MG Tab PO SCH ×2 (10:20→21:46)
[2016-10-01] MEDS: Dronabinol 2.5 MG Cap PO SCH ×3 (10:21→16:42)
[2016-10-01] MEDS: amLODIPine 10 MG Tab PO SCH (10:22)
--- NOTE | 2016-10-01 11:36 | PCM.PN ---
- General Info Date of Service: 10/01/16 Functional Status: Reports: pain controlled, tolerating diet, urinating - Review of Systems General: Reports: No Symptoms HEENT: Reports: no symptoms Pulmonary: Reports: no symptoms Cardiovascular: Reports: No Symptoms Gastrointestinal: Reports: No symptoms Genitourinary: Reports: no symptoms Musculoskeletal: Reports: no symptoms Skin: Reports: no symptoms Neurological: Reports: No Symptoms Psychiatric: Reports: no symptoms - Patient Data Vitals - most recent: Last Vital Signs Temp 36.4 C 10/01/16 08:23 Pulse 68 10/01/16 10:18 Resp 20 10/01/16 08:23 BP 112/50 L 10/01/16 10:22 Pulse Ox 100 10/01/16 08:23 Weight - most recent: 77.836 kg I&O - last 24 hours: Intake & Output 09/30/16 10/01/16 10/01/16 22:59 06:59 14:59 Intake Total 380 0 Output Total 600 Balance -220 0 Lab Results last 24 hrs: Laboratory Results - last 24 hr 09/30/16 09/30/16 10/01/16 Range/Units 18:00 18:00 06:08 WBC 4.74 (4.23-9.07) K/mm3 RBC 3.36 L (4.63-6.08) M/mm3 Hgb 9.8 L (13.7-17.5) gm/L Hct 30.2 L (40.1-51.0) % MCV 89.9 (79.0-92.2) fl MCH 29.2 (25.7-32.2) pg MCHC 32.5 (32.2-35.5) g/dl RDW Std Deviation 42.0 (35.1-43.9) fL Plt Count 204 (163-337) K/mm3 MPV 11.1 (9.4-12.3) fl Neut % (Auto) 63.5 (34.0-67.9) % Lymph % (Auto) 15.0 L (21.8-53.1) % Armstrong % (Auto) 12.9 H (5.3-12.2) % Eos % (Auto) 8.0 H (0.8-7.0) Baso % (Auto) 0.4 (0.1-1.2) % Neut # (Auto) 3.01 (1.78-5.38) K/mm3 Lymph # (Auto) 0.71 L (1.32-3.57) K/mm3 Armstrong # (Auto) 0.61 (0.30-0.82) K/mm3 Eos # (Auto) 0.38 (0.04-0.54) K/mm3 Baso # (Auto) 0.02 (0.01-0.08) K/mm3 Sodium (136-145) mEq/L Potassium (3.5-5.1) mEq/L Chloride (98-107) mEq/L Carbon Dioxide (21-32) mEq/L Anion Gap (5-15) BUN (7-18) mg/dL Creatinine (0.7-1.3) mg/dL Est Cr Clr Drug Dosing mL/min Estimated GFR (MDRD) (>60) mL/min BUN/Creatinine Ratio (14-18) Glucose (83-115) mg/dL Calcium (8.5-10.1) mg/dL Magnesium (1.8-2.4) mg/dl Troponin I 0.081 H* (0.00-0.056) ng/mL B-Natriuretic Peptide 911 H (0-100) pg/mL 10/01/16 Range/Units 06:08 WBC (4.23-9.07) K/mm3 RBC (4.63-6.08) M/mm3 Hgb (13.7-17.5) gm/L Hct (40.1-51.0) % MCV (79.0-92.2) fl MCH (25.7-32.2) pg MCHC (32.2-35.5) g/dl RDW Std Deviation (35.1-43.9) fL Plt Count (163-337) K/mm3 MPV (9.4-12.3) fl Neut % (Auto) (34.0-67.9) % Lymph % (Auto) (21.8-53.1) % Armstrong % (Auto) (5.3-12.2) % Eos % (Auto) (0.8-7.0) Baso % (Auto) (0.1-1.2) % Neut # (Auto) (1.78-5.38) K/mm3 Lymph # (Auto) (1.32-3.57) K/mm3 Armstrong # (Auto) (0.30-0.82) K/mm3 Eos # (Auto) (0.04-0.54) K/mm3 Baso # (Auto) (0.01-0.08) K/mm3 Sodium 138 (136-145) mEq/L Potassium 3.9 (3.5-5.1) mEq/L Chloride 105 (98-107) mEq/L Carbon Dioxide 22 (21-32) mEq/L Anion Gap 14.9 (5-15) BUN 52 H (7-18) mg/dL Creatinine 2.6 H (0.7-1.3) mg/dL Est Cr Clr Drug Dosing 20.33 mL/min Estimated GFR (MDRD) 24 (>60) mL/min BUN/Creatinine Ratio 20.0 H (14-18) Glucose 100 (83-115) mg/dL Calcium 8.2 L (8.5-10.1) mg/dL Magnesium 2.1 (1.8-2.4) mg/dl Troponin I (0.00-0.056) ng/mL B-Natriuretic Peptide (0-100) pg/mL Raffi Results last 24 hrs: Microbiology 09/28/16 18:30 Gram Stain - Final Pleural Fluid - Pleural Cavity, Right Body Fluid Culture - Preliminary NO GROWTH AFTER 3 DAYS 09/28/16 18:30 Acid Fast Bacilli Smear - Final Pleural Fluid - Pleural Cavity, Right Med Orders - Current: Current Medications Albuterol/Ipratropium (Duoneb 3.0-0.5 Mg/3 Ml) 3 ml NEB Q4H PRN PRN Reason: Shortness Of Breath/wheezing Amlodipine Besylate (Norvasc) 10 mg PO DAILY [facility] Last Admin: 10/01/16 10:22 Dose: 10 mg Bisacodyl (Dulcolax) 5 mg PO DAILY PRN PRN Reason: Constipation Docusate Sodium (Colace) 100 mg PO BID PRN PRN Reason: Constipation Dronabinol (Marinol) 2.5 mg PO TIDAC [facility] Last Admin: 10/01/16 10:21 Dose: 2.5 mg Hydralazine HCl (Apresoline) 10 mg IVPUSH Q4H PRN PRN Reason: Hypertension Last Admin: 09/29/16 16:39 Dose: 10 mg Hydromorphone HCl (Dilaudid) 0.25 mg IVPUSH Q4H PRN PRN Reason: Pain (severe 7-10) Last Admin: 09/28/16 18:00 Dose: 0.25 mg Promethazine HCl 12.5 mg/ (Sodium Chloride) 50.5 mls @ 100 mls/hr IV Q6H PRN PRN Reason: Nausea/Vomiting Levetiracetam (Keppra) 500 mg PO BID [facility] Last Admin: 10/01/16 10:20 Dose: 500 mg Lorazepam (Ativan) 0.25 mg IV Q6H PRN PRN Reason: Anxiety Magnesium Sulfate (Pharmacy To Dose - Magnesium Replacement) 0 dose .XX ASDIRECTED PRN PRN Reason: RX TO MONITOR MAG LEVELS Metolazone (Zaroxolyn) 2.5 mg PO BIDDIURETIC [facility] Last Admin: 10/01/16 06:28 Dose: 2.5 mg Metoprolol Succinate (Toprol Xl) 25 mg PO DAILY [facility] Last Admin: 10/01/16 10:18 Dose: 25 mg Metoprolol Tartrate (Lopressor) 5 mg IVPUSH Q4H PRN PRN Reason: Tachycardia Ondansetron HCl (Zofran) 4 mg IV Q6H PRN PRN Reason: Nausea/Vomiting Oxycodone HCl (Oxycodone) 5 mg PO Q6H PRN PRN Reason: Pain (moderate 4-6) Last Admin: 09/29/16 17:32 Dose: 5 mg Polyethylene Glycol (Miralax) 17 gm PO DAILY PRN PRN Reason: Constipation Potassium Chloride (Pharmacy To Dose - Potassium Replacement) 0 dose .XX ASDIRECTED PRN PRN Reason: RX TO MONITOR K LEVELS Senna/Docusate Sodium (Senna Plus) 1 tab PO BID PRN PRN Reason: Constipation Sodium Chloride (Saline Flush) 10 ml FLUSH ASDIRECTED PRN PRN Reason: Keep Vein Open Last Admin: 09/28/16 11:32 Dose: 10 ml Temazepam (Restoril) 7.5 mg PO BEDTIME PRN PRN Reason: SLEEP Discontinued Medications Bumetanide (Bumex) 0.5 mg IVPUSH ONETIME ONE Stop: 09/30/16 14:29 Last Admin: 09/30/16 16:32 Dose: 0.5 mg Sodium Chloride (Normal Saline) 250 mls @ 999 mls/hr IV .BOLUS ONE Stop: 09/28/16 11:55 Last Admin: 09/28/16 11:45 Dose: 999 mls/hr Sodium Chloride (Normal Saline) 1,000 mls @ 75 mls/hr IV ASDIRECTED PEDRO Lorazepam (Ativan) 2 mg IVPUSH Q4H PRN PRN Reason: Seizures Morphine Sulfate (Morphine) 0.25 mg IVPUSH ONETIME ONE Stop: 09/29/16 17:19 Last Admin: 09/29/16 17:35 Dose: Not Given Potassium Chloride (Klor-Con M20) 40 meq PO Q4H PEDRO Stop: 09/29/16 16:01 Last Admin: 09/29/16 16:15 Dose: 40 meq - Exam Quality Assessment: supplemental oxygen, DVT prophylaxis General: alert, oriented, no acute distress HEENT: Pupils equal, Pupils reactive, EOMI Neck: supple, trachea midline, no JVD Lungs: Decreased breath sounds Cardiovascular: Regular Rate Abdomen: bowel sounds present, soft, no tenderness, no distension (Male) Exam: Deferred Back Exam: Normal Inspection Extremities: edema (2-3+) Skin: warm Neurological: no new focal deficit, normal gait, other (hard of hearing) Psy/Mental Status: alert, normal affect, normal mood - Problem List Review Problem List Initiated/Reviewed/Updated: Yes - Plan Plan:: Assessment/Plan: Acute: Congestive Heart Failure - HF unknown EF - BNP 1351 ---> 1273 - 2D echo: LV ejection fraction 50-55%. Severely dilated left atrium. Moderate mitral valve and tricuspid valve regurgitation. - Daily weights, salt and fluid restriction - IS as directed - Metolazone 2.5 mg po BID - Bumex 0.5 mg IVP x1 Bilateral Pleural Effusions, residual - 2/2 HF with Unknown EF - Moderately large on CXR and CT scan - He is not on blood thinner - S/p Bilateral Thoracentesisx - > 3L of straw colored pleural fluid removed - Pleural fluid cytology shows no malignant cells Bilateral Pneumothorax: Persistent small right apical - Left sided pneumothorax, resolved - S/p Thoracentesis - On Supplemental O2 but non-compliant, encourage to keep O2 on Elevated Troponin Level - Likely from troponin leak - Troponin 0.226 --> 0.229--> 0.163 - Cannot r/o NSTEMI - CKMB all normal Generalized Weakness, Improved - 2/2 declining health: worsening renal and cardiac function - Also poor oral intake - Vit D level (he was low back in 06/04/2016) still pending - Thyroid panel normal - Continue PT/OT Open Sore/Decubitus Ulcer - 1 cm x 0.5 cm - Left Gluteal - Risk Factor: bound and not mobile - Skin breakdown prevention HTN - More controlled - Hold Lasix - Start Norvasc 10 mg po daily - PRN Hydralazine Resolved: S/p Failure To Thrive, - Mostly Bed-bound - Dependent on spouse for care - Poor intake and clinically dehydrated - Dietary consulted Chronic: Impaired Vision and Hearing HF with Reduced EF GERD BPH Back Pain Anemia of Chronic Disease (likely from CKD) Seizure Disorder Stasis Dermatitis Hypoalbuminemia Rosacea CKD Stage IV, GFR is at baseline, He has seen a specialist but was told he is not a good candidate for dialysis Plan: He remains clinically stable He has been ambulating w/o difficulties Continue current treatment Routine AM Labs Continue PT/OT Seizure/Fall Precautions SW/CM for d/c planning Additional orders as above Encourage to use IS as directed Code status: DNR/DNI Recommend SNF/NH LOS>96 hours expected for SNF placement vs possible return to home, TBD
[2016-10-02] MEDS: Metolazone 2.5 MG Tab PO SCH (06:43)
[2016-10-02] MEDS: Dronabinol 2.5 MG Cap PO SCH ×3 (06:43→17:20)
[2016-10-02] MEDS: Metoprolol Succinate 25 MG Tab.ER PO SCH (08:42)
[2016-10-02] MEDS: levETIRAcetam 500 MG Tab PO SCH ×2 (08:45→20:40)
[2016-10-02] MEDS: Polyethylene Glycol 3350 Powder 17 GM Packet PO PRN (08:45)
[2016-10-02] MEDS: amLODIPine 10 MG Tab PO SCH (08:45)
--- NOTE | 2016-10-02 09:56 | CR ---
Chest: 2 views of the chest were obtained. Comparison: Previous chest x-ray of 09/30/16. Very minimal apical pneumothorax remains on the right side. Pulmonary vessels remain congested. Small bilateral pleural effusions with bibasilar atelectasis is seen. Heart size appears within normal limits for technique. Tortuous thoracic aorta is seen. Previous sternotomy is noted. Bony structures are unchanged. Impression: 1. Atelectasis within both lung bases improved within the right base from prior exam. 2. Stable pulmonary vascular congestion and small pleural effusions. 3. Very minimal right apical pneumothorax remains. Diagnostic code #3
--- NOTE | 2016-10-02 11:51 | PCM.PN ---
- General Info Date of Service: 10/02/16 Functional Status: Reports: tolerating diet, ambulating, urinating - Review of Systems General: Reports: No Symptoms HEENT: Reports: no symptoms Pulmonary: Reports: no symptoms Cardiovascular: Reports: No Symptoms Gastrointestinal: Reports: No symptoms Genitourinary: Reports: no symptoms Musculoskeletal: Reports: no symptoms Skin: Reports: no symptoms Neurological: Reports: No Symptoms Psychiatric: Reports: no symptoms - Patient Data Vitals - most recent: Last Vital Signs Temp 37.1 C 10/02/16 07:36 Pulse 64 10/02/16 08:44 Resp 14 10/02/16 07:39 BP 125/54 L 10/02/16 08:45 Pulse Ox 96 10/02/16 07:39 Weight - most recent: 77.564 kg I&O - last 24 hours: Intake & Output 10/01/16 10/02/16 10/02/16 22:59 06:59 14:59 Intake Total 520 400 Output Total 825 625 Balance -305 -225 Lab Results last 24 hrs: Laboratory Results - last 24 hr 09/28/16 10/02/16 Range/Units 20:37 06:10 Sodium 138 (136-145) mEq/L Potassium 4.3 (3.5-5.1) mEq/L Chloride 104 (98-107) mEq/L Carbon Dioxide 22 (21-32) mEq/L Anion Gap 16.3 H (5-15) BUN 54 H (7-18) mg/dL Creatinine 2.6 H (0.7-1.3) mg/dL Est Cr Clr Drug Dosing 19.95 mL/min Estimated GFR (MDRD) 23 (>60) mL/min BUN/Creatinine Ratio 20.8 H (14-18) Glucose 103 (83-115) mg/dL Calcium 8.2 L (8.5-10.1) mg/dL Magnesium 2.2 (1.8-2.4) mg/dl 25-OH Vitamin D Total 7.8 L (24.0-80.0) ng/mL 25-Hydroxy Vitamin D2 <4.0 ng/mL 25-Hydroxy Vitamin D3 7.8 ng/mL Raffi Results last 24 hrs: Microbiology 09/28/16 18:30 Gram Stain - Final Pleural Fluid - Pleural Cavity, Right Med Orders - Current: Current Medications Albuterol/Ipratropium (Duoneb 3.0-0.5 Mg/3 Ml) 3 ml NEB Q4H PRN PRN Reason: Shortness Of Breath/wheezing Amlodipine Besylate (Norvasc) 10 mg PO DAILY [facility] Last Admin: 10/02/16 08:45 Dose: 10 mg Bisacodyl (Dulcolax) 5 mg PO DAILY PRN PRN Reason: Constipation Last Admin: 10/01/16 21:45 Dose: 5 mg Docusate Sodium (Colace) 100 mg PO BID PRN PRN Reason: Constipation Dronabinol (Marinol) 2.5 mg PO TIDAC [facility] Last Admin: 10/02/16 11:25 Dose: 2.5 mg Hydralazine HCl (Apresoline) 10 mg IVPUSH Q4H PRN PRN Reason: Hypertension Last Admin: 09/29/16 16:39 Dose: 10 mg Hydromorphone HCl (Dilaudid) 0.25 mg IVPUSH Q4H PRN PRN Reason: Pain (severe 7-10) Last Admin: 09/28/16 18:00 Dose: 0.25 mg Promethazine HCl 12.5 mg/ (Sodium Chloride) 50.5 mls @ 100 mls/hr IV Q6H PRN PRN Reason: Nausea/Vomiting Levetiracetam (Keppra) 500 mg PO BID [facility] Last Admin: 10/02/16 08:45 Dose: 500 mg Lorazepam (Ativan) 0.25 mg IV Q6H PRN PRN Reason: Anxiety Metolazone (Zaroxolyn) 2.5 mg PO DAILY [facility] Metoprolol Succinate (Toprol Xl) 25 mg PO DAILY [facility] Last Admin: 10/02/16 08:42 Dose: 25 mg Metoprolol Tartrate (Lopressor) 5 mg IVPUSH Q4H PRN PRN Reason: Tachycardia Ondansetron HCl (Zofran) 4 mg IV Q6H PRN PRN Reason: Nausea/Vomiting Oxycodone HCl (Oxycodone) 5 mg PO Q6H PRN PRN Reason: Pain (moderate 4-6) Last Admin: 09/29/16 17:32 Dose: 5 mg Polyethylene Glycol (Miralax) 17 gm PO DAILY PRN PRN Reason: Constipation Last Admin: 10/02/16 08:45 Dose: 17 gm Senna/Docusate Sodium (Senna Plus) 1 tab PO BID PRN PRN Reason: Constipation Sodium Chloride (Saline Flush) 10 ml FLUSH ASDIRECTED PRN PRN Reason: Keep Vein Open Last Admin: 09/28/16 11:32 Dose: 10 ml Temazepam (Restoril) 7.5 mg PO BEDTIME PRN PRN Reason: SLEEP Terazosin HCl (Hytrin) 2 mg PO BEDTIME PEDRO Discontinued Medications Bumetanide (Bumex) 0.5 mg IVPUSH ONETIME ONE Stop: 09/30/16 14:29 Last Admin: 09/30/16 16:32 Dose: 0.5 mg Sodium Chloride (Normal Saline) 250 mls @ 999 mls/hr IV .BOLUS ONE Stop: 09/28/16 11:55 Last Admin: 09/28/16 11:45 Dose: 999 mls/hr Sodium Chloride (Normal Saline) 1,000 mls @ 75 mls/hr IV ASDIRECTED PEDRO Lorazepam (Ativan) 2 mg IVPUSH Q4H PRN PRN Reason: Seizures Magnesium Sulfate (Pharmacy To Dose - Magnesium Replacement) 0 dose .XX ASDIRECTED PRN PRN Reason: RX TO MONITOR MAG LEVELS Metolazone (Zaroxolyn) 2.5 mg PO BIDDIURETIC [facility] Last Admin: 10/02/16 06:43 Dose: 2.5 mg Morphine Sulfate (Morphine) 0.25 mg IVPUSH ONETIME ONE Stop: 09/29/16 17:19 Last Admin: 09/29/16 17:35 Dose: Not Given Potassium Chloride (Pharmacy To Dose - Potassium Replacement) 0 dose .XX ASDIRECTED PRN PRN Reason: RX TO MONITOR K LEVELS Potassium Chloride (Klor-Con M20) 40 meq PO Q4H [facility] Stop: 09/29/16 16:01 Last Admin: 09/29/16 16:15 Dose: 40 meq - Exam Quality Assessment: supplemental oxygen, DVT prophylaxis General: alert, oriented, cooperative, no acute distress HEENT: Pupils equal, Pupils reactive, EOMI, Mucous membr. moist/pink Neck: supple, trachea midline, no JVD Lungs: Normal respiratory effort, Decreased breath sounds (R>L) Cardiovascular: Regular Rate Abdomen: bowel sounds present, soft, no tenderness, no distension (Male) Exam: Deferred Back Exam: Normal Inspection Extremities: normal pulses Skin: warm Neurological: no new focal deficit, normal speech Psy/Mental Status: alert, normal affect, normal mood - Problem List & Annotations (1) Anemia SNOMED Code(s): 047416602 Code(s): D64.9 - ANEMIA, UNSPECIFIED Status: Acute Current Visit: Yes (2) CHF, Congestive heart failure SNOMED Code(s): 51786202 Code(s): I50.9 - HEART FAILURE, UNSPECIFIED Status: Acute Current Visit: Yes (3) Renal failure (ARF), acute on chronic SNOMED Code(s): 139591265 Code(s): N17.9 - ACUTE KIDNEY FAILURE, UNSPECIFIED; N18.9 - CHRONIC KIDNEY DISEASE, UNSPECIFIED Status: Acute Current Visit: Yes Qualifiers: Acute renal failure type: unspecified Chronic kidney disease stage: unspecified stage Qualified Code(s): N17.9 - Acute kidney failure, unspecified ; N18.9 - Chronic kidney disease, unspecified - Problem List Review Problem List Initiated/Reviewed/Updated: Yes - My Orders Last 24 Hours: My Active Orders 10/02/16 21:00 Terazosin [Hytrin] 2 mg PO BEDTIME 10/03/16 09:00 CXR [Chest 2V] [CR] DAILY Metolazone [Zaroxolyn] 2.5 mg PO DAILY - Plan Plan:: Assessment/Plan: Acute: Congestive Heart Failure - HF unknown EF - BNP 1351 ---> 1273 - 2D echo: LV ejection fraction 50-55%. Severely dilated left atrium. Moderate mitral valve and tricuspid valve regurgitation. - Daily weights, salt and fluid restriction - IS as directed - Metolazone 2.5 mg po BID - Bumex 0.5 mg IVP x1 Bilateral Pleural Effusions, residual - 2/2 HF with Unknown EF - Moderately large on CXR and CT scan - He is not on blood thinner - S/p Bilateral Thoracentesisx - > 3L of straw colored pleural fluid removed - Pleural fluid cytology shows no malignant cells Bilateral Pneumothorax: Persistent small right apical - Left sided pneumothorax, resolved - S/p Thoracentesis - On Supplemental O2 but non-compliant, encourage to keep O2 on Elevated Troponin Level - Likely from troponin leak - Troponin 0.226 --> 0.229--> 0.163 - Cannot r/o NSTEMI - CKMB all normal Generalized Weakness, Improved - 2/2 declining health: worsening renal and cardiac function - Also poor oral intake - Vit D level (he was low back in 06/04/2016) still pending - Thyroid panel normal - Continue PT/OT Open Sore/Decubitus Ulcer - 1 cm x 0.5 cm - Left Gluteal - Risk Factor: bound and not mobile - Skin breakdown prevention HTN - More controlled - Hold Lasix - Start Norvasc 10 mg po daily - PRN Hydralazine Resolved: S/p Failure To Thrive, - Mostly Bed-bound - Dependent on spouse for care - Poor intake and clinically dehydrated - Dietary consulted Chronic: Impaired Vision and Hearing HF with Reduced EF GERD BPH Back Pain Anemia of Chronic Disease (likely from CKD) Seizure Disorder Stasis Dermatitis Hypoalbuminemia Rosacea CKD Stage IV, GFR is at baseline, He has seen a specialist but was told he is not a good candidate for dialysis Plan: He remains clinically stable He has been ambulating w/o difficulties Continue current treatment Routine AM Labs Continue PT/OT Seizure/Fall Precautions SW/CM for d/c planning Additional orders as above Encourage to use IS as directed Code status: DNR/DNI Recommend SNF/NH LOS>96 hours expected for SNF placement vs possible return to home, TBD
[2016-10-02] MEDS: Terazosin 1 MG Cap PO SCH (20:39)
[2016-10-03] MEDS: Dronabinol 2.5 MG Cap PO SCH ×3 (06:35→16:55)
[2016-10-03] MEDS: Metoprolol Succinate 25 MG Tab.ER PO SCH (09:37)
[2016-10-03] MEDS: levETIRAcetam 500 MG Tab PO SCH ×2 (09:37→20:28)
[2016-10-03] MEDS: Metolazone 2.5 MG Tab PO SCH (09:37)
[2016-10-03] MEDS: Polyethylene Glycol 3350 Powder 17 GM Packet PO PRN (09:43)
--- NOTE | 2016-10-03 11:33 | PCM.PN ---
- General Info Date of Service: 10/04/16 Functional Status: Reports: pain controlled, tolerating diet, ambulating, urinating - Review of Systems General: Reports: Weakness HEENT: Reports: no symptoms Pulmonary: Reports: no symptoms Cardiovascular: Reports: No Symptoms Gastrointestinal: Reports: No symptoms Genitourinary: Reports: no symptoms Musculoskeletal: Reports: no symptoms Skin: Reports: no symptoms Neurological: Reports: No Symptoms Psychiatric: Reports: no symptoms - Patient Data Vitals - most recent: Last Vital Signs Temp 36.4 C 10/03/16 07:48 Pulse 62 10/03/16 09:37 Resp 20 10/03/16 07:48 BP 155/65 H 10/03/16 09:37 Pulse Ox 97 10/03/16 07:48 Weight - most recent: 78.335 kg I&O - last 24 hours: Intake & Output 10/02/16 10/03/16 10/03/16 22:59 06:59 14:59 Intake Total 300 75 Output Total 450 Balance 300 -375 Raffi Results last 24 hrs: Microbiology 09/28/16 18:30 Gram Stain - Final Pleural Fluid - Pleural Cavity, Right Body Fluid Culture - Preliminary NO GROWTH AFTER 5 DAYS Med Orders - Current: Current Medications Albuterol/Ipratropium (Duoneb 3.0-0.5 Mg/3 Ml) 3 ml NEB Q4H PRN PRN Reason: Shortness Of Breath/wheezing Amlodipine Besylate (Norvasc) 10 mg PO DAILY [facility] Last Admin: 10/02/16 08:45 Dose: 10 mg Bisacodyl (Dulcolax) 5 mg PO DAILY PRN PRN Reason: Constipation Last Admin: 10/01/16 21:45 Dose: 5 mg Docusate Sodium (Colace) 100 mg PO BID PRN PRN Reason: Constipation Dronabinol (Marinol) 2.5 mg PO TIDAC [facility] Last Admin: 10/03/16 06:35 Dose: 2.5 mg Hydralazine HCl (Apresoline) 10 mg IVPUSH Q4H PRN PRN Reason: Hypertension Last Admin: 09/29/16 16:39 Dose: 10 mg Hydromorphone HCl (Dilaudid) 0.25 mg IVPUSH Q4H PRN PRN Reason: Pain (severe 7-10) Last Admin: 09/28/16 18:00 Dose: 0.25 mg Promethazine HCl 12.5 mg/ (Sodium Chloride) 50.5 mls @ 100 mls/hr IV Q6H PRN PRN Reason: Nausea/Vomiting Levetiracetam (Keppra) 500 mg PO BID [facility] Last Admin: 10/03/16 09:37 Dose: 500 mg Lorazepam (Ativan) 0.25 mg IV Q6H PRN PRN Reason: Anxiety Metolazone (Zaroxolyn) 2.5 mg PO DAILY [facility] Last Admin: 10/03/16 09:37 Dose: 2.5 mg Metoprolol Succinate (Toprol Xl) 25 mg PO DAILY [facility] Last Admin: 10/03/16 09:37 Dose: 25 mg Metoprolol Tartrate (Lopressor) 5 mg IVPUSH Q4H PRN PRN Reason: Tachycardia Ondansetron HCl (Zofran) 4 mg IV Q6H PRN PRN Reason: Nausea/Vomiting Oxycodone HCl (Oxycodone) 5 mg PO Q6H PRN PRN Reason: Pain (moderate 4-6) Last Admin: 09/29/16 17:32 Dose: 5 mg Polyethylene Glycol (Miralax) 17 gm PO DAILY PRN PRN Reason: Constipation Last Admin: 10/03/16 09:43 Dose: 17 gm Senna/Docusate Sodium (Senna Plus) 1 tab PO BID PRN PRN Reason: Constipation Last Admin: 10/03/16 09:43 Dose: 1 tab Sodium Chloride (Saline Flush) 10 ml FLUSH ASDIRECTED PRN PRN Reason: Keep Vein Open Last Admin: 09/28/16 11:32 Dose: 10 ml Temazepam (Restoril) 7.5 mg PO BEDTIME PRN PRN Reason: SLEEP Terazosin HCl (Hytrin) 2 mg PO BEDTIME [facility] Last Admin: 10/02/16 20:39 Dose: 2 mg Discontinued Medications Bumetanide (Bumex) 0.5 mg IVPUSH ONETIME ONE Stop: 09/30/16 14:29 Last Admin: 09/30/16 16:32 Dose: 0.5 mg Sodium Chloride (Normal Saline) 250 mls @ 999 mls/hr IV .BOLUS ONE Stop: 09/28/16 11:55 Last Admin: 09/28/16 11:45 Dose: 999 mls/hr Sodium Chloride (Normal Saline) 1,000 mls @ 75 mls/hr IV ASDIRECTED [facility] Lorazepam (Ativan) 2 mg IVPUSH Q4H PRN PRN Reason: Seizures Magnesium Sulfate (Pharmacy To Dose - Magnesium Replacement) 0 dose .XX ASDIRECTED PRN PRN Reason: RX TO MONITOR MAG LEVELS Metolazone (Zaroxolyn) 2.5 mg PO BIDDIURETIC [facility] Last Admin: 10/02/16 06:43 Dose: 2.5 mg Morphine Sulfate (Morphine) 0.25 mg IVPUSH ONETIME ONE Stop: 09/29/16 17:19 Last Admin: 09/29/16 17:35 Dose: Not Given Potassium Chloride (Pharmacy To Dose - Potassium Replacement) 0 dose .XX ASDIRECTED PRN PRN Reason: RX TO MONITOR K LEVELS Potassium Chloride (Klor-Con M20) 40 meq PO Q4H PEDRO Stop: 09/29/16 16:01 Last Admin: 09/29/16 16:15 Dose: 40 meq Terazosin HCl (Hytrin) 2 mg PO BEDTIME PEDRO - Exam Quality Assessment: supplemental oxygen, DVT prophylaxis General: alert, oriented, cooperative, no acute distress HEENT: Pupils equal, Pupils reactive, EOMI Neck: supple, trachea midline, no JVD Lungs: Normal respiratory effort, Decreased breath sounds Cardiovascular: Regular Rate Abdomen: bowel sounds present, soft, no tenderness, no distension (Male) Exam: Deferred Back Exam: Normal Inspection Extremities: normal pulses Skin: warm Neurological: no new focal deficit Psy/Mental Status: alert, normal affect, normal mood - Problem List & Annotations (1) Anemia SNOMED Code(s): 880589728 Code(s): D64.9 - ANEMIA, UNSPECIFIED Status: Acute Current Visit: Yes (2) CHF, Congestive heart failure SNOMED Code(s): 07830750 Code(s): I50.9 - HEART FAILURE, UNSPECIFIED Status: Acute Current Visit: Yes (3) Renal failure (ARF), acute on chronic SNOMED Code(s): 310375239 Code(s): N17.9 - ACUTE KIDNEY FAILURE, UNSPECIFIED; N18.9 - CHRONIC KIDNEY DISEASE, UNSPECIFIED Status: Acute Current Visit: Yes Qualifiers: Acute renal failure type: unspecified Chronic kidney disease stage: unspecified stage Qualified Code(s): N17.9 - Acute kidney failure, unspecified ; N18.9 - Chronic kidney disease, unspecified - Problem List Review Problem List Initiated/Reviewed/Updated: Yes - My Orders Last 24 Hours: My Active Orders 10/02/16 21:00 Terazosin [Hytrin] 2 mg PO BEDTIME 10/03/16 09:00 CXR [Chest 2V] [CR] DAILY Metolazone [Zaroxolyn] 2.5 mg PO DAILY 10/04/16 05:00 CBC WITH AUTO DIFF [HEME] DAILY TROPONIN I [CHEM] Routine 10/05/16 05:00 CBC WITH AUTO DIFF [HEME] DAILY 10/06/16 05:00 CBC WITH AUTO DIFF [HEME] DAILY - Plan Plan:: Assessment/Plan: Acute: Congestive Heart Failure - HF unknown EF - BNP 1351 ---> 1273 - 2D echo: LV ejection fraction 50-55%. Severely dilated left atrium. Moderate mitral valve and tricuspid valve regurgitation. - Daily weights, salt and fluid restriction - IS as directed - Metolazone 2.5 mg po BID - Bumex 0.5 mg IVP x1 Bilateral Pleural Effusions, residual - 2/2 HF with Unknown EF - Moderately large on CXR and CT scan - He is not on blood thinner - S/p Bilateral Thoracentesisx - > 3L of straw colored pleural fluid removed - Pleural fluid cytology shows no malignant cells Bilateral Pneumothorax: Persistent small right apical-->resolved by CXR 10/03/16 - Left sided pneumothorax, resolved - S/p Thoracentesis - On Supplemental O2 but non-compliant, encourage to keep O2 on Elevated Troponin Level - Likely from troponin leak - Troponin 0.226 --> 0.229--> 0.163 - Cannot r/o NSTEMI - CKMB all normal Generalized Weakness, Improved - 2/2 declining health: worsening renal and cardiac function - Also poor oral intake - Vit D level (he was low back in 06/04/2016) still pending - Thyroid panel normal - Continue PT/OT Open Sore/Decubitus Ulcer - 1 cm x 0.5 cm - Left Gluteal - Risk Factor: bound and not mobile - Skin breakdown prevention HTN - More controlled - Hold Lasix - Start Norvasc 10 mg po daily - PRN Hydralazine Resolved: S/p Failure To Thrive, - Mostly Bed-bound - Dependent on spouse for care - Poor intake and clinically dehydrated - Dietary consulted Chronic: Impaired Vision and Hearing HF with Reduced EF GERD BPH Back Pain Anemia of Chronic Disease (likely from CKD) Seizure Disorder Stasis Dermatitis Hypoalbuminemia Rosacea CKD Stage IV, GFR is at baseline, He has seen a specialist but was told he is not a good candidate for dialysis (?!) Plan: He remains clinically stable He has been ambulating w/o difficulties Continue current treatment Routine AM Labs Continue PT/OT Seizure/Fall Precautions SW/CM for d/c planning Additional orders as above Encourage to use IS as directed Code status: DNR/DNI Recommend SNF/NH Check O2 requirement, DC expected 10/03/16 LOS>96 hours expected for SNF placement vs possible return to home, TBD
--- NOTE | 2016-10-03 12:00 | CR ---
Chest: 2 views of the chest were obtained. Comparison: Previous chest x-ray of 10/02/16. Small bilateral pleural effusions are seen. Mild bibasilar atelectasis is noted. Pulmonary vessels are diffusely increased likely representing chronic pulmonary vascular congestion. Heart is enlarged. 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 Bony structures are grossly intact. Impression: 1. Findings as noted above. No significant change is seen from prior chest x-ray. Diagnostic code #3
[2016-10-03] MEDS ORDERED: amLODIPine 10 MG Tab PO ONE (12:42)
[2016-10-03] MEDS: Terazosin 1 MG Cap PO SCH (20:29)
[2016-10-04] MEDS ORDERED: Bisacodyl 10 MG Supp RECTAL ONE (04:14)
[2016-10-04] MEDS: Dronabinol 2.5 MG Cap PO SCH ×2 (06:59→12:06)
[2016-10-04] MEDS: Metolazone 2.5 MG Tab PO SCH (09:20)
[2016-10-04] MEDS: levETIRAcetam 500 MG Tab PO SCH (09:21)
[2016-10-04] MEDS: Metoprolol Succinate 25 MG Tab.ER PO SCH (09:29)
[2016-10-04 09:31] VITALS: BP 104/46
--- NOTE | 2016-10-04 10:19 | PCM.DCSUM1 ---
<Marlene Casiano - Last Filed: 10/04/16 10:20> Discharge Summary - Hospital Course Free Text/Narrative:: his is an 85-year-old elderly white male with past medical history of impaired Vision and Hearing, HF with Reduced EF, HTN, GERD, BPH, Back Pain, Anemia of Chronic Disease (likely from CKD), Seizure Disorder, Stasis Dermatitis, Rosacea and CKD Stage IV who comes in the emergency department with complains of failure to thrive and dehydration. Patient carries a history of chronic renal failure. He has seen a junior loan processor in the past, family states did not wish to pursue dialysis. Patient comes from home. He has been progressively getting weak and his quality of life seems to be deteriorating per daughters who were present at bedside. He is dependent with his care from his spouse. His appetite has been marginally to poor. He complains of shortness of breath and occasional dry cough. He denies any systemic symptoms. His initial workup in the emergency department shows a CBC remarkable for an RBC of 2.26, hemoglobin of 9.5, hematocrit of 29.5, lymphocyte of 18.3, and monocyte of 17.8. His chemistry is remarkable for BUN of 48, creatinine of 3.1, AST of 12, ALT of 14, troponin of 0.266, BNP of 1351, total protein of 6.3 and albumin of 2.62.6. His CXR and CT scan shows bilateral lateral moderately large pleural effusions and bibasilar atelectasis. Patient is being admitted for acute congestive heart failure, bilateral pleural effusions failure to thrive, and progressive generalized weakness. He is DNR/ DNI. Dr. Toledo performed bilateral thoracentesis with 2L and 1L drained. Symptoms dramatically improved. Cultures on fluid were negative. Patient however developed bialteral pneumothorax, small. He was kept on supplemental oxygen; occasionally noncompliant with wearing however. Pneumothoraces resolved spontaneously with supplemental oxygen treatment. He was diuresed with IV and PO, lasix changed to metolazone with improvements and better diuresis. He was maintained on sodium and fluid restriction. Lower extremities with eula wraps bilaterally with improvement to LE edema. He is chronically anemic with hgb cont to trend down, 8.6 on day of discharge. Iron studies obtained, occult stool was unable to be obtained--rx written to obtain at home with results to PCP for eval. Discussed with patient and family need for further anemia eval and will consult with Dr. Ramirez as outpatient. Patient worked with PT/OT for strengthening which was slowly improving. Therapies and team recommend SNF placement but patient and family defer, wishing dc home with home health care services. Face to face encounter on day of discharge with patient and daughter reveals patient will benefit from Home Health Care services of PT/OT, nursing care. He is home bound. He has chronic CHF, anemia and generalized weakness. Nursing care will benefit with education re: disease process and medication education, VS. PT/OT for generalized weakness, gait imbalance. He will follow up with PCP, Dr. Monroe one week following discharge who will assume [facility] from that point on. Patient will also require hospital bed and wheelchair at home. Patient needs hospital bed as he should have HOB elevated >30 degrees due to CHF/SOB s/p thoracentesis for bilateral pleural effusions, GERD and for acute on chronic back pain. He will also need wheelchair for mobility assistance due to generalized weakness and difficulty/inability to walk more than short distances with a walker. - Discharge Data Discharge Date: 10/04/16 (admit date 09/28/16) Discharge Disposition: Home, W Home Health Agency 06 Condition: Good - Discharge Diagnosis/Problem(s) (1) CHF, Congestive heart failure SNOMED Code(s): 21410534 ICD Code: I50.9 - HEART FAILURE, UNSPECIFIED Status: Acute Priority: High Current Visit: Yes (2) Bilateral pleural effusion SNOMED Code(s): 355238825 ICD Code: J90 - PLEURAL EFFUSION, NOT ELSEWHERE CLASSIFIED Status: Acute Priority: High Current Visit: Yes (3) Pneumothorax SNOMED Code(s): 83269344 ICD Code: J93.9 - PNEUMOTHORAX, UNSPECIFIED Status: Acute Priority: High Current Visit: Yes Qualifiers: Pneumothorax type: postprocedural Qualified Code(s): J95.811 - Postprocedural pneumothorax; J95.81 - Postprocedural pneumothorax and air leak (4) Anemia SNOMED Code(s): 447630449 ICD Code: D64.9 - ANEMIA, UNSPECIFIED Status: Chronic Priority: Medium Current Visit: Yes Qualifiers: Anemia type: unspecified type Qualified Code(s): D64.9 - Anemia, unspecified (5) Renal failure (ARF), acute on chronic SNOMED Code(s): 110693942 ICD Code: N17.9 - ACUTE KIDNEY FAILURE, UNSPECIFIED; N18.9 - CHRONIC KIDNEY DISEASE, UNSPECIFIED Status: Acute Priority: High Current Visit: Yes Qualifiers: Acute renal failure type: unspecified Chronic kidney disease stage: stage 4 (severe) Qualified Code(s): N17.9 - Acute kidney failure, unspecified; N18.4 - Chronic kidney disease, stage 4 (severe) (6) S/P thoracentesis SNOMED Code(s): 442848403, 710879179 ICD Code: Z98.890 - OTHER SPECIFIED POSTPROCEDURAL STATES Status: Resolved Priority: High Current Visit: Yes - Patient Summary/Data Operative Procedure(s) Performed: Thoracentesis- bilateral per Dr. Toledo Complications: Pneumothorax s/p thoracentesis--completely resolved on CXR, weaned off of supplemental oxygen without difficulty or problems. Consults: None Consult with Dr. Ramirez as outpatient for further anemia evaluation/workup. Labs Pending at D/C: Occult stool--orders sent home to collect at home. Recommended Follow-up Testing/Procedures: Therapy recommends a tub transfer bench for home. Physical and occupational therapy to continue to evaluate and treat --Home Health Care services Daily weight. Keep a record for your primary doctor. Morning, after voiding-- record weight and bring in record to follow up visit. Dr Leroy recommends follow up with Dr. Monroe post hospitalization within one week of discharge; labs at that time CBC and BMP. Consult with Dr. Ramirez as outpatient for anemia, colonoscopy eval should you wish to have further evaluation. Recommend consult within 1-2 weeks. Planned Operative Procedure(s) after DC: None at this time. Hospital Course: As above. - Patient Instructions Diet: Heart Healthy Diet, Low Sodium, Fluid Restriction Fluid Restriction: 2000 mL Activity: As Tolerated (PT/OT to continue with Home Health Care Services) Driving: Do Not Drive Showering/Bathing: May Shower Notify Provider of: Fever, Increased Pain, Nausea and/or Vomiting (worsening of swelling to lower extremities, worsening of weakness, shortness of breath, chest pain) - Discharge Plan Prescriptions/Med Rec: Docusate Sodium/Sennosides [Senna Plus] 1 tab PO BID #60 tablet Ferrous Sulfate 325 mg PO BIDMEALS #60 tablet Metolazone [Zaroxolyn] 2.5 mg PO DAILY #30 tablet Metoprolol Succinate [Toprol XL] 25 mg PO DAILY #30 tab.er Polyethylene Glycol 3350 [MiraLAX] 17 gm PO DAILY #30 packet Terazosin [Hytrin] 2 mg PO BEDTIME #30 cap levETIRAcetam [Keppra] 500 mg PO BID #60 tablet oxyCODONE 5 mg PO Q6H PRN #20 tablet PRN Reason: Pain Home Medications: Home Meds Docusate Sodium/Sennosides [Senna Plus] 1 tab PO BID #60 tablet 10/04/16 [Rx] Ferrous Sulfate 325 mg PO BIDMEALS #60 tablet 10/04/16 [Rx] Metolazone [Zaroxolyn] 2.5 mg PO DAILY #30 tablet 10/04/16 [Rx] Metoprolol Succinate [Toprol XL] 25 mg PO DAILY #30 tab.er 10/04/16 [Rx] Polyethylene Glycol 3350 [MiraLAX] 17 gm PO DAILY #30 packet 10/04/16 [Rx] Terazosin [Hytrin] 2 mg PO BEDTIME #30 cap 10/04/16 [Rx] levETIRAcetam [Keppra] 500 mg PO BID #60 tablet 10/04/16 [Rx] oxyCODONE 5 mg PO Q6H PRN #20 tablet 10/04/16 [Rx] Patient Handouts: Thoracentesis, Thoracentesis, Care After, Pleural Effusion, Heart Failure, [id number], Chronic Kidney Disease, Anemia, Nonspecific Forms: ED Department Discharge Referrals: Jodee Lorenz NP [Primary Care Provider] - Markos Marcos MD [Physician] - 10/12/16 1:00 pm - Discharge Summary/Plan Comment DC Time >30 min.: Yes (40 min) - General Info Date of Service: 10/04/16 Admission Dx/Problem (Free Text: Generalized Weakness and Failure to Thrive Patient is sitting up in chair today, finishing breakfast. Denies c/o pain/ discomfort. Energy and appetite have improved. Patient is ready for DC home and anxious to be discharged to go home. Therapy has recommended SNF but patient and family want DC home with family care and [facility]. Functional Status: Reports: pain controlled, tolerating diet, ambulating, urinating. Denies: new symptoms - Review of Systems General: Reports: No Symptoms, Weakness (improved), Appetite (improved), Other ( very [place]) HEENT: Reports: no symptoms Pulmonary: Reports: no symptoms. Denies: shortness of breath, pleuritic chest pain, cough Cardiovascular: Reports: No Symptoms. Denies: Chest Pain, Palpitations Gastrointestinal: Reports: No symptoms. Denies: Abdominal pain Genitourinary: Reports: no symptoms Neurological: Reports: No Symptoms Psychiatric: Reports: no symptoms - Patient Data Vitals - Most Recent: Last Vital Signs Temp 97.0 F 10/04/16 08:46 Pulse 64 10/04/16 09:29 Resp 18 10/04/16 08:43 BP 104/46 L 10/04/16 09:29 Pulse Ox 97 10/04/16 08:44 Weight - Most Recent: 79.107 kg I&O - Last 24 hours: Intake & Output 10/03/16 10/04/16 10/04/16 22:59 06:59 14:59 Intake Total 840 150 Output Total 300 300 Balance 540 -150 Lab Results - Last 24 hrs: Laboratory Results - last 24 hr 10/04/16 10/04/16 10/04/16 Range/Units 05:57 05:57 05:57 WBC 4.13 L (4.23-9.07) K/mm3 RBC 2.98 L (4.63-6.08) M/mm3 Hgb 8.6 L (13.7-17.5) gm/L Hct 26.4 L (40.1-51.0) % MCV 88.6 (79.0-92.2) fl MCH 28.9 (25.7-32.2) pg MCHC 32.6 (32.2-35.5) g/dl RDW Std Deviation 40.5 (35.1-43.9) fL Plt Count 199 (163-337) K/mm3 MPV 11.2 (9.4-12.3) fl Neut % (Auto) 56.3 (34.0-67.9) % Lymph % (Auto) 20.1 L (21.8-53.1) % [place] % (Auto) 15.0 H (5.3-12.2) % Eos % (Auto) 7.7 H (0.8-7.0) Baso % (Auto) 0.7 (0.1-1.2) % Neut # (Auto) 2.32 (1.78-5.38) K/mm3 Lymph # (Auto) 0.83 L (1.32-3.57) K/mm3 [place] # (Auto) 0.62 (0.30-0.82) K/mm3 Eos # (Auto) 0.32 (0.04-0.54) K/mm3 Baso # (Auto) 0.03 (0.01-0.08) K/mm3 Sodium 137 (136-145) mEq/L Potassium 4.0 (3.5-5.1) mEq/L Chloride 103 (98-107) mEq/L Carbon Dioxide 21 (21-32) mEq/L Anion Gap 17.0 H (5-15) BUN 63 H (7-18) mg/dL Creatinine 2.7 H (0.7-1.3) mg/dL Est Cr Clr Drug Dosing 19.21 mL/min Estimated GFR (MDRD) 22 (>60) mL/min BUN/Creatinine Ratio 23.3 H (14-18) Glucose 101 (83-115) mg/dL Calcium 7.9 L (8.5-10.1) mg/dL Iron 28 L (65-175) ug/dL TIBC 201 (100-400) ug/dL % Saturation 14 L (20-55) % Transferrin 161 L (202-364) mg/dL Troponin I 0.115 H* (0.00-0.056) ng/mL JP Results - Last 24 hrs: Microbiology 09/28/16 18:30 Gram Stain - Final Pleural Fluid - Pleural Cavity, Right Body Fluid Culture - Preliminary NO GROWTH AFTER 6 DAYS Med Orders - Current: Current Medications Albuterol/Ipratropium (Duoneb 3.0-0.5 Mg/3 Ml) 3 ml NEB Q4H PRN PRN Reason: Shortness Of Breath/wheezing Bisacodyl (Dulcolax) 5 mg PO DAILY PRN PRN Reason: Constipation Last Admin: 10/01/16 21:45 Dose: 5 mg Docusate Sodium (Colace) 100 mg PO BID PRN PRN Reason: Constipation Dronabinol (Marinol) 2.5 mg PO TIDAC [facility] Last Admin: 10/04/16 06:59 Dose: 2.5 mg Ferrous Sulfate (Ferrous Sulfate) [facility] Hydralazine HCl (Apresoline) 10 mg IVPUSH Q4H PRN PRN Reason: Hypertension Last Admin: 09/29/16 16:39 Dose: 10 mg Hydromorphone HCl (Dilaudid) 0.25 mg IVPUSH Q4H PRN PRN Reason: Pain (severe 7-10) Last Admin: 09/28/16 18:00 Dose: 0.25 mg Promethazine HCl 12.5 mg/ (Sodium Chloride) 50.5 mls @ 100 mls/hr IV Q6H PRN PRN Reason: Nausea/Vomiting Levetiracetam (Keppra) 500 mg PO BID [facility] Last Admin: 10/04/16 09:21 Dose: 500 mg Lorazepam (Ativan) 0.25 mg IV Q6H PRN PRN Reason: Anxiety Metolazone (Zaroxolyn) 2.5 mg PO DAILY [facility] Last Admin: 10/04/16 09:20 Dose: 2.5 mg Metoprolol Succinate (Toprol Xl) 25 mg PO DAILY [facility] Last Admin: 10/04/16 09:29 Dose: Not Given Metoprolol Tartrate (Lopressor) 5 mg IVPUSH Q4H PRN PRN Reason: Tachycardia Ondansetron HCl (Zofran) 4 mg IV Q6H PRN PRN Reason: Nausea/Vomiting Oxycodone HCl (Oxycodone) 5 mg PO Q6H PRN PRN Reason: Pain (moderate 4-6) Last Admin: 09/29/16 17:32 Dose: 5 mg Polyethylene Glycol (Miralax) 17 gm PO DAILY PRN PRN Reason: Constipation Last Admin: 10/03/16 09:43 Dose: 17 gm Senna/Docusate Sodium (Senna Plus) 1 tab PO BID PRN PRN Reason: Constipation Last Admin: 10/03/16 09:43 Dose: 1 tab Sodium Chloride (Saline Flush) 10 ml FLUSH ASDIRECTED PRN PRN Reason: Keep Vein Open Last Admin: 09/28/16 11:32 Dose: 10 ml Temazepam (Restoril) 7.5 mg PO BEDTIME PRN PRN Reason: SLEEP Terazosin HCl (Hytrin) 2 mg PO BEDTIME [facility] Last Admin: 10/03/16 20:29 Dose: 1 mg Discontinued Medications Amlodipine Besylate (Norvasc) 10 mg PO DAILY [facility] Last Admin: 10/02/16 08:45 Dose: 10 mg Amlodipine Besylate (Norvasc) 10 mg PO ONETIME ONE Stop: 10/03/16 12:43 Last Admin: 10/03/16 12:50 Dose: Not Given Bisacodyl (Dulcolax) 10 mg RECTAL ONETIME ONE Stop: 10/04/16 04:15 Last Admin: 10/04/16 05:15 Dose: 10 mg Bumetanide (Bumex) 0.5 mg IVPUSH ONETIME ONE Stop: 09/30/16 14:29 Last Admin: 09/30/16 16:32 Dose: 0.5 mg Sodium Chloride (Normal Saline) 250 mls @ 999 mls/hr IV .BOLUS ONE Stop: 09/28/16 11:55 Last Admin: 09/28/16 11:45 Dose: 999 mls/hr Sodium Chloride (Normal Saline) 1,000 mls @ 75 mls/hr IV ASDIRECTED [facility] Lorazepam (Ativan) 2 mg IVPUSH Q4H PRN PRN Reason: Seizures Magnesium Sulfate (Pharmacy To Dose - Magnesium Replacement) 0 dose .XX ASDIRECTED PRN PRN Reason: RX TO MONITOR MAG LEVELS Metolazone (Zaroxolyn) 2.5 mg PO BIDDIURETIC [facility] Last Admin: 10/02/16 06:43 Dose: 2.5 mg Morphine Sulfate (Morphine) 0.25 mg IVPUSH ONETIME ONE Stop: 09/29/16 17:19 Last Admin: 09/29/16 17:35 Dose: Not Given Potassium Chloride (Pharmacy To Dose - Potassium Replacement) 0 dose .XX ASDIRECTED PRN PRN Reason: RX TO MONITOR K LEVELS Potassium Chloride (Klor-Con M20) 40 meq PO Q4H [facility] Stop: 09/29/16 16:01 Last Admin: 09/29/16 16:15 Dose: 40 meq Terazosin HCl (Hytrin) 2 mg PO BEDTIME [facility] - Exam Quality Assessment: Reports: DVT prophylaxis General: Reports: alert, cooperative, no acute distress HEENT: Reports: Pupils equal, Pupils reactive, EOMI, Mucous membr. moist/pink, Other (very [place]) Neck: Reports: supple, no JVD Lungs: Reports: Clear to auscultation, Normal respiratory effort, Decreased breath sounds (bases but no adventitious sounds) Abdomen: Reports: bowel sounds present, soft, no tenderness, no distension (Male) Exam: Deferred Rectal (Males) Exam: Deferred Back Exam: Reports: Normal Inspection Extremities: Reports: edema (eula wraps bilat to LE; edema improved) Neurological: Reports: no new focal deficit Psy/Mental Status: Reports: alert, normal affect, normal mood *Q Meaningful Use (DIS) - VTE *Q VTE Criteria *Q: - Stroke *Q Stroke Criteria *Q: - AMI *Q AMI Criteria *Q: <Fidelia Leroy - Last Filed: 10/04/16 14:24> Discharge Summary - Hospital Course Free Text/Narrative:: See above for complete details, agree with summary. - Discharge Diagnosis/Problem(s) (1) Anemia SNOMED Code(s): 339915555 ICD Code: D64.9 - ANEMIA, UNSPECIFIED Status: Chronic Priority: Medium Current Visit: Yes Qualifiers: Anemia type: unspecified type Qualified Code(s): D64.9 - Anemia, unspecified (2) CHF, Congestive heart failure SNOMED Code(s): 63441040 ICD Code: I50.9 - HEART FAILURE, UNSPECIFIED Status: Acute Priority: High Current Visit: Yes (3) Renal failure (ARF), acute on chronic SNOMED Code(s): 230805973 ICD Code: N17.9 - ACUTE KIDNEY FAILURE, UNSPECIFIED; N18.9 - CHRONIC KIDNEY DISEASE, UNSPECIFIED Status: Acute Priority: High Current Visit: Yes Qualifiers: Acute renal failure type: unspecified Chronic kidney disease stage: stage 4 (severe) Qualified Code(s): N17.9 - Acute kidney failure, unspecified; N18.4 - Chronic kidney disease, stage 4 (severe) - Patient Data Vitals - Most Recent: Last Vital Signs Temp 36.1 C 10/04/16 08:46 Pulse 64 10/04/16 09:29 Resp 18 10/04/16 08:43 BP 104/46 L 10/04/16 09:29 Pulse Ox 97 10/04/16 08:44 I&O - Last 24 hours: Intake & Output 10/03/16 10/04/16 10/04/16 22:59 06:59 14:59 Intake Total 840 150 180 Output Total 300 300 Balance 540 -150 180 Lab Results - Last 24 hrs: Laboratory Results - last 24 hr 10/04/16 10/04/16 10/04/16 Range/Units 05:57 05:57 05:57 WBC 4.13 L (4.23-9.07) K/mm3 RBC 2.98 L (4.63-6.08) M/mm3 Hgb 8.6 L (13.7-17.5) gm/L Hct 26.4 L (40.1-51.0) % MCV 88.6 (79.0-92.2) fl MCH 28.9 (25.7-32.2) pg MCHC 32.6 (32.2-35.5) g/dl RDW Std Deviation 40.5 (35.1-43.9) fL Plt Count 199 (163-337) K/mm3 MPV 11.2 (9.4-12.3) fl Neut % (Auto) 56.3 (34.0-67.9) % Lymph % (Auto) 20.1 L (21.8-53.1) % [place] % (Auto) 15.0 H (5.3-12.2) % Eos % (Auto) 7.7 H (0.8-7.0) Baso % (Auto) 0.7 (0.1-1.2) % Neut # (Auto) 2.32 (1.78-5.38) K/mm3 Lymph # (Auto) 0.83 L (1.32-3.57) K/mm3 [place] # (Auto) 0.62 (0.30-0.82) K/mm3 Eos # (Auto) 0.32 (0.04-0.54) K/mm3 Baso # (Auto) 0.03 (0.01-0.08) K/mm3 Sodium 137 (136-145) mEq/L Potassium 4.0 (3.5-5.1) mEq/L Chloride 103 (98-107) mEq/L Carbon Dioxide 21 (21-32) mEq/L Anion Gap 17.0 H (5-15) BUN 63 H (7-18) mg/dL Creatinine 2.7 H (0.7-1.3) mg/dL Est Cr Clr Drug Dosing 19.21 mL/min Estimated GFR (MDRD) 22 (>60) mL/min BUN/Creatinine Ratio 23.3 H (14-18) Glucose 101 (83-115) mg/dL Calcium 7.9 L (8.5-10.1) mg/dL Iron 28 L (65-175) ug/dL TIBC 201 (100-400) ug/dL % Saturation 14 L (20-55) % Transferrin 161 L (202-364) mg/dL Troponin I 0.115 H* (0.00-0.056) ng/mL JP Results - Last 24 hrs: Microbiology 09/28/16 18:30 Gram Stain - Final Pleural Fluid - Pleural Cavity, Right Body Fluid Culture - Preliminary NO GROWTH AFTER 6 DAYS Med Orders - Current: Current Medications Albuterol/Ipratropium (Duoneb 3.0-0.5 Mg/3 Ml) 3 ml NEB Q4H PRN PRN Reason: Shortness Of Breath/wheezing Bisacodyl (Dulcolax) 5 mg PO DAILY PRN PRN Reason: Constipation Last Admin: 10/01/16 21:45 Dose: 5 mg Docusate Sodium (Colace) 100 mg PO BID PRN PRN Reason: Constipation Dronabinol (Marinol) 2.5 mg PO TIDAC [facility] Last Admin: 10/04/16 12:06 Dose: 2.5 mg Ferrous Sulfate (F[facility]ous Sulfate) [facility] Hydralazine HCl (Apresoline) 10 mg IVPUSH Q4H PRN PRN Reason: Hypertension Last Admin: 09/29/16 16:39 Dose: 10 mg Hydromorphone HCl (Dilaudid) 0.25 mg IVPUSH Q4H PRN PRN Reason: Pain (severe 7-10) Last Admin: 09/28/16 18:00 Dose: 0.25 mg Promethazine HCl 12.5 mg/ (Sodium Chloride) 50.5 mls @ 100 mls/hr IV Q6H PRN PRN Reason: Nausea/Vomiting Levetiracetam (Keppra) 500 mg PO BID [facility] Last Admin: 10/04/16 09:21 Dose: 500 mg Lorazepam (Ativan) 0.25 mg IV Q6H PRN PRN Reason: Anxiety Metolazone (Zaroxolyn) 2.5 mg PO DAILY [facility] Last Admin: 10/04/16 09:20 Dose: 2.5 mg Metoprolol Succinate (Toprol Xl) 25 mg PO DAILY [facility] Last Admin: 10/04/16 09:29 Dose: Not Given Metoprolol Tartrate (Lopressor) 5 mg IVPUSH Q4H PRN PRN Reason: Tachycardia Ondansetron HCl (Zofran) 4 mg IV Q6H PRN PRN Reason: Nausea/Vomiting Oxycodone HCl (Oxycodone) 5 mg PO Q6H PRN PRN Reason: Pain (moderate 4-6) Last Admin: 09/29/16 17:32 Dose: 5 mg Polyethylene Glycol (Miralax) 17 gm PO DAILY PRN PRN Reason: Constipation Last Admin: 10/03/16 09:43 Dose: 17 gm Senna/Docusate Sodium (Senna Plus) 1 tab PO BID PRN PRN Reason: Constipation Last Admin: 10/03/16 09:43 Dose: 1 tab Sodium Chloride (Saline Flush) 10 ml FLUSH ASDIRECTED PRN PRN Reason: Keep Vein Open Last Admin: 09/28/16 11:32 Dose: 10 ml Temazepam (Restoril) 7.5 mg PO BEDTIME PRN PRN Reason: SLEEP Terazosin HCl (Hytrin) 2 mg PO BEDTIME [facility] Last Admin: 10/03/16 20:29 Dose: 1 mg Discontinued Medications Amlodipine Besylate (Norvasc) 10 mg PO DAILY [facility] Last Admin: 10/02/16 08:45 Dose: 10 mg Amlodipine Besylate (Norvasc) 10 mg PO ONETIME ONE Stop: 10/03/16 12:43 Last Admin: 10/03/16 12:50 Dose: Not Given Bisacodyl (Dulcolax) 10 mg RECTAL ONETIME ONE Stop: 10/04/16 04:15 Last Admin: 10/04/16 05:15 Dose: 10 mg Bumetanide (Bumex) 0.5 mg IVPUSH ONETIME ONE Stop: 09/30/16 14:29 Last Admin: 09/30/16 16:32 Dose: 0.5 mg Sodium Chloride (Normal Saline) 250 mls @ 999 mls/hr IV .BOLUS ONE Stop: 09/28/16 11:55 Last Admin: 09/28/16 11:45 Dose: 999 mls/hr Sodium Chloride (Normal Saline) 1,000 mls @ 75 mls/hr IV ASDIRECTED [facility] Lorazepam (Ativan) 2 mg IVPUSH Q4H PRN PRN Reason: Seizures Magnesium Sulfate (Pharmacy To Dose - Magnesium Replacement) 0 dose .XX ASDIRECTED PRN PRN Reason: RX TO MONITOR MAG LEVELS Metolazone (Zaroxolyn) 2.5 mg PO BIDDIURETIC [facility] Last Admin: 10/02/16 06:43 Dose: 2.5 mg Morphine Sulfate (Morphine) 0.25 mg IVPUSH ONETIME ONE Stop: 09/29/16 17:19 Last Admin: 09/29/16 17:35 Dose: Not Given Potassium Chloride (Pharmacy To Dose - Potassium Replacement) 0 dose .XX ASDIRECTED PRN PRN Reason: RX TO MONITOR K LEVELS Potassium Chloride (Klor-Con M20) 40 meq PO Q4H [facility] Stop: 09/29/16 16:01 Last Admin: 09/29/16 16:15 Dose: 40 meq Terazosin HCl (Hytrin) 2 mg PO BEDTIME [facility] *Q Meaningful Use (DIS) - VTE *Q VTE Criteria *Q: - Stroke *Q Stroke Criteria *Q: - AMI *Q AMI Criteria *Q:
[2016-10-04] MEDS ORDERED: Ferrous Sulfate 325 MG Tab PO SCH (17:00)
== END 2016-10-04 12:35 | disposition home health service (06) | DRG 292 ==
LOC: JD.ED 10:53 → JD.MS 13:06 → UNDOADMIN 13:06 → JD.MS 14:00
PROVIDERS: ADMIT Internal Medicine; ATTEND Internal Medicine
PROC: 0W9B3ZX Drainage of Left Pleural Cavity, Percutaneous Approach, Diagnostic (ICD-10-PCS; principal; 2016-09-29)
PROC: 0W993ZX Drainage of Right Pleural Cavity, Percutaneous Approach, Diagnostic (ICD-10-PCS; 2016-09-29)
DX: I13.0 Hypertensive heart and chronic kidney disease with heart failure and stage 1 through stage 4 chronic kidney disease, or unspecified chronic kidney disease (principal); N17.9 Acute kidney failure, unspecified; N18.4 Chronic kidney disease, stage 4 (severe); N18.9 Chronic kidney disease, unspecified; J95.811 Postprocedural pneumothorax; D64.9 Anemia, unspecified; R62.7 Adult failure to thrive; R53.1 Weakness; I50.9 Heart failure, unspecified; Z87.891 Personal history of nicotine dependence; R74.8 Abnormal levels of other serum enzymes; K21.9 Gastro-esophageal reflux disease without esophagitis; N40.0 Benign prostatic hyperplasia without lower urinary tract symptoms; G89.29 Other chronic pain; M54.9 Dorsalgia, unspecified; Z79.899 Other long term (current) drug therapy; D63.1 Anemia in chronic kidney disease; G40.909 Epilepsy, unspecified, not intractable, without status epilepticus; I87.2 Venous insufficiency (chronic) (peripheral); E88.09 Other disorders of plasma-protein metabolism, not elsewhere classified; L71.9 Rosacea, unspecified; L89.899 Pressure ulcer of other site, unspecified stage; Z85.46 Personal history of malignant neoplasm of prostate; Z66 Do not resuscitate; H91.90 Unspecified hearing loss, unspecified ear; Z96.659 Presence of unspecified artificial knee joint; Z88.1 Allergy status to other antibiotic agents; Z88.8 Allergy status to other drugs, medicaments and biological substances; Z88.6 Allergy status to analgesic agent; Z91.02 Food additives allergy status; Z91.011 Allergy to milk products; Z74.01 Bed confinement status; Y83.8 Other surgical procedures as the cause of abnormal reaction of the patient, or of later complication, without mention of misadventure at the time of the procedure; H54.7 Unspecified visual loss
CPT/HCPCS: 36415; 71010; 71250; 80053; 83880; 84484; 85025; 88112; 93005; 96360; 99285; J7040; J7050; 71020; 71020-26; 76942; 80048; 82042; 82306; 82553; 82945; 83540; 83615; 83735; 83986; 84155; 84157; 84439; 84443; 84466; 87015; 87070; 87102; 87116; 87205; 87206; 87220; 87493; 89050; 93306; 94761; 97110-GO; 97110-GP; 97116-GP; 97163-GP; 97167-GO; 97530-GO; 97535-GO; 99223; 99232; 99233; 99239; A9270-GY; J0360; J1170; J2270; Q0167